=== PATIENT | male | born 1930 | race Caucasian/White ===

== ENCOUNTER 2017-07-12 16:15 | Inpatient (IN) ==
[2017-07-12 19:27] LABS: Basophils % 0.2 %; Eosinophils % 0.5 %; Hematocrit 33.3 % (37.5-50.1); Hemoglobin 11.3 g/dL (12.9-16.9); Immature Granulocytes % 1.5 % (0-4); Lymphocytes # 0.6 K/mcL (0.6-4.6); Lymphocytes % 10.2 %; Mean Corpuscular HGB Conc 33.9 g/dL (31.6-35.5); Mean Corpuscular Hemoglobin 29.3 pg (28.0-33.3); Mean Corpuscular Volume 86.3 fL (83.0-100.0); Mean Platelet Volume 10.9 fL (9.4-12.4); Monocytes # 0.5 K/mcL (0.0-1.3); Monocytes % 7.7 %; Neutrophils # 4.9 K/mcL (1.6-8.9); Red Blood Count 3.86 M/mcL (4.19-5.50); Red Cell Distribution Width 14.6 % (11.5-14.5); Segmented Neutrophils % 79.9 %
[2017-07-12 19:28] LABS: Platelet Count 93 K/mcL (140-400)
[2017-07-12 19:32] LABS: INR 1.3
[2017-07-12 19:45] LABS: Albumin 3.1 g/dL (3.5-5.7); Albumin/Globulin Ratio 1.1 (1.1-2.2); Bilirubin,Direct 0.3 mg/dL (0.0-0.2); Bilirubin,Indirect 0.5 mg/dL (0.0-1.2); Bilirubin,Total 0.8 mg/dL (0.3-1.0); Calcium 8.4 mg/dL (8.6-10.3); Globulin 2.8 g/dL (2.4-3.5); Potassium 3.9 mEq/L (3.5-5.1); Total Protein 5.9 g/dL (6.4-8.9)
--- NOTE | 2017-07-12 21:04 | Emergency Department Note ---
Disposition Clinical Impression: Renal failure (ARF), acute on chronic Qualifiers: Acute renal failure type: unspecified Chronic kidney disease stage: stage 4 ( severe) Qualified Code(s): N17.9 - Acute kidney failure, unspecified Cirrhosis of liver with ascites Qualifiers: Hepatic cirrhosis type: unspecified hepatic cirrhosis Qualified Code(s): K74.60 - Unspecified cirrhosis of liver Disposition: Admitted As Inpatient Condition: Good Referrals: Tere Castellanos GLOBAL SECURITY ARCHITECT [Primary Care Provider] - Forms: ED Satisfaction Letter, Work/School Release Time of Disposition: 21:11 General Adult HPI - General Chief complaint: ED General Medical Stated complaint: abd swelling, short of breath Time Seen by Provider: 07/12/17 18:15 Source: patient Limitations: no limitations Nursing Notes Reviewed: Yes Vital Signs Reviewed: Yes - History of Present Illness HPI Narrative: This is an 86 year-old male with history of HTN, type 2 diabtes, stage 4 kidney disease, and non-alcoholic cirrhosis. He presents with abdominal distension and early satiety, gradually worsening for at least 3 weeks, associated with a 10 pound weight gain over that time period. Recently, he has also developed exertional dyspnea. He denies any associated fever, abdominal pain (except for uncomfortable "fullness"), or urinary output changes. He was sent to the ED by his PCP Dr. Magana for therapeutic paracentesis. Pt Subjective Complaint: Abdominal Distention Onset (ago): week(s) (3) Location: abdomen Radiation: non-radiation Pain Severity: mild Pain Scale: 2 Quality: dull (fullness/distension) Consistency: Worsening Improves with: nothing Worsens with: nothing Associated symptoms: Reports: loss of appetite (decreased), shortness of breath. Denies: chest pain, fever/chills, nausea/vomiting - Related Data Home Medications Medication Instructions Recorded Confirmed Ascorbic Acid [Vitamin C] 1,000 mg PO BID 06/04/15 05/05/17 Cholecalciferol (Vitamin D3) 1,000 unit PO DAILY 06/04/15 05/05/17 [Vitamin D3] Esomeprazole Magnesium [Nexium] 40 mg PO DAILY PRN 06/04/15 05/05/17 Carvedilol [Coreg] 6.25 mg PO DAILY 05/05/17 05/05/17 Fenofibrate Nanocrystallized 145 mg PO DAILY 05/05/17 05/05/17 [Tricor] Furosemide [Lasix] 40 mg PO DAILY 05/05/17 05/05/17 Repaglinide [Prandin] 2 mg PO DAILY 07/12/17 07/12/17 Previous Rx's Medication Instructions Recorded amLODIPine [Norvasc] 5 mg PO BID #30 tablet 05/08/17 Allergies Allergy/AdvReac Type Severity Reaction Status Date / Time Sulfa (Sulfonamide AdvReac See Verified 05/05/17 16:49 Antibiotics) Comments All systems ED: reviewed and negative except as stated. Constitutional: Denies: fever Cardiovascular: Denies: chest pain, edema Respiratory: Reports: dyspnea. Denies: cough Gastrointestinal: Denies: abdominal pain, vomiting, constipation, hematemesis, melena, hematochezia Genitourinary: Denies: dysuria Musculoskeletal: Denies: back pain Past Medical History - Past Medical History Medical history: Reports: non-contributory, diabetes, hyperlipidemia, other Surgical history: Reports: no surgical history, non-contributory Psychiatric history: Reports: no psych history - Social History Smoking Status: Never smoker Smokeless Tobacco Status: No Alcohol use: Reports: none Drug use: Reports: none Physical Exam - General Limitations: no limitations General appearance: alert, in no apparent distress - Eye Eye exam: Present: normal appearance - Neck Neck exam: Present: normal inspection - Respiratory Respiratory exam: Present: normal lung sounds bilaterally. Absent: respiratory distress - Cardiovascular Cardiovascular exam: Present: regular rate, normal rhythm, normal heart sounds - Abdominal Exam Abdominal exam: Present: soft, Non-Tender, distention. Absent: guarding, rebound, rigidity, Kirk's sign, tenderness at McBurney's Point - Extremities Exam Extremities exam: Present: normal inspection. Absent: pedal edema, calf tenderness - Neurological Exam Neurological exam: Present: alert, oriented X3. Absent: motor sensory deficit - Psychiatric Psychiatric exam: Present: normal affect, normal mood - Skin Skin exam: Present: warm, dry, intact Course - Reevaluation(s) Reevaluation #1: Updated patient/family on findings and plans. They are in agreement with admission. Time: 21:13 - Consultations Consultation #1: Reviewed case with sales floor associate, Dr. Lau. He agrees with bringing patient in for acute on chronic renal failure. He recommends 0.9 NS at 75 mL/hr for a total of 1L and hold Lasix. Time: 21:00 Consultation #2: Reviewed case with Dr. Spencer, and patient accepted for admission. Time: 21:10 Vital Signs Temperature 97.8 F 07/12/17 16:18 Pulse Rate 82 07/12/17 16:18 Respiratory Rate 14 07/12/17 16:18 Blood Pressure 145/79 07/12/17 16:18 O2 Sat by Pulse Oximetry 94 07/12/17 16:18 Temperature 97.8 F 07/12/17 19:04 Pulse Rate 82 07/12/17 21:04 Respiratory Rate 14 07/12/17 19:04 Blood Pressure 136/86 07/12/17 21:04 O2 Sat by Pulse Oximetry 94 07/12/17 19:04 Oxygen Delivery Oxygen Delivery Room Air Medical Decision Making - Lab Data Result diagrams: 07/12/17 19:09 07/12/17 19:09 Lab Results 07/12/17 07/12/17 07/12/17 Range/Units 19:09 19:09 19:09 WBC 6.1 (4.3-11.1) K/mcL RBC 3.86 L (4.19-5.50) M/mcL Hgb 11.3 L (12.9-16.9) g/dL Hct 33.3 L (37.5-50.1) % MCV 86.3 (83.0-100.0) fL MCH 29.3 (28.0-33.3) pg MCHC 33.9 (31.6-35.5) g/dL RDW 14.6 H (11.5-14.5) % Plt Count 93 L (140-400) K/mcL MPV 10.9 (9.4-12.4) fL Immature Gran % 1.5 (0-4) % Seg Neutrophils % 79.9 % Lymphocytes % 10.2 % Monocytes % 7.7 % Eosinophils % 0.5 % Basophils % 0.2 % Neutrophils # 4.9 (1.6-8.9) K/mcL Lymphocytes # 0.6 (0.6-4.6) K/mcL Monocytes # 0.5 (0.0-1.3) K/mcL Eosinophils # 0.0 (0.0-0.6) K/mcL Basophils # 0.0 (0.0-0.2) K/mcL PT (9.4-12.1) Seconds INR Sodium 136 (136-145) mEq/L Potassium 3.9 (3.5-5.1) mEq/L Chloride 102 (98-107) mEq/L Carbon Dioxide 19 L (23-29) mEq/L BUN 80 H (8-23) mg/dL Creatinine 5.72 H (0.70-1.30) mg/dL Est GFR ( Amer) 11 L (> 60) Est GFR (Non-Af Amer) 9 L (> 60) BUN/Creatinine Ratio 14 (6-26) Glucose 279 H (70-105) mg/dL Calculated Osmolality 316 H (280-300) Calcium 8.4 L (8.6-10.3) mg/dL Total Bilirubin 0.8 (0.3-1.0) mg/dL Direct Bilirubin 0.3 H (0.0-0.2) mg/dL Indirect Bilirubin 0.5 (0.0-1.2) mg/dL AST 27 (13-39) Units/L ALT 13 (7-52) Units/L Alkaline Phosphatase 61 (34-104) Units/L B-Natriuretic Peptide 236 H (Less than 100) pg/mL Serum Total Protein 5.9 L (6.4-8.9) g/dL Albumin 3.1 L (3.5-5.7) g/dL Globulin 2.8 (2.4-3.5) g/dL Albumin/Globulin Ratio 1.1 (1.1-2.2) //18 Range/Units 19:09 WBC (4.3-11.1) K/mcL RBC (4.19-5.50) M/mcL Hgb (12.9-16.9) g/dL Hct (37.5-50.1) % MCV (83.0-100.0) fL MCH (28.0-33.3) pg MCHC (31.6-35.5) g/dL RDW (11.5-14.5) % Plt Count (140-400) K/mcL MPV (9.4-12.4) fL Immature Gran % (0-4) % Seg Neutrophils % % Lymphocytes % % Monocytes % % Eosinophils % % Basophils % % Neutrophils # (1.6-8.9) K/mcL Lymphocytes # (0.6-4.6) K/mcL Monocytes # (0.0-1.3) K/mcL Eosinophils # (0.0-0.6) K/mcL Basophils # (0.0-0.2) K/mcL PT 14.0 H (9.4-12.1) Seconds INR 1.3 Sodium (136-145) mEq/L Potassium (3.5-5.1) mEq/L Chloride (98-107) mEq/L Carbon Dioxide (23-29) mEq/L BUN (8-23) mg/dL Creatinine (0.70-1.30) mg/dL Est GFR ( Amer) (> 60) Est GFR (Non-Af Amer) (> 60) BUN/Creatinine Ratio (6-26) Glucose (70-105) mg/dL Calculated Osmolality (280-300) Calcium (8.6-10.3) mg/dL Total Bilirubin (0.3-1.0) mg/dL Direct Bilirubin (0.0-0.2) mg/dL Indirect Bilirubin (0.0-1.2) mg/dL AST (13-39) Units/L ALT (7-52) Units/L Alkaline Phosphatase (34-104) Units/L B-Natriuretic Peptide (Less than 100) pg/mL Serum Total Protein (6.4-8.9) g/dL Albumin (3.5-5.7) g/dL Globulin (2.4-3.5) g/dL Albumin/Globulin Ratio (1.1-2.2)
[2017-07-12] MEDS ORDERED: Naloxone 0.4 MG/ML INJ IVP PRN (21:56)
[2017-07-12] MEDS ORDERED: Dextrose Gel 15 GM/37.5 ML TUBE PO PRN ×2 (21:57)
[2017-07-12] MEDS ORDERED: *HR* Dextrose 50 % in Water (Syg) 50 ML SYRINGE IVP PRN (21:57)
[2017-07-12] MEDS ORDERED: D5% in Water 1,000 ML IVC PRN (21:57)
--- NOTE | 2017-07-12 22:03 | Internal Med History&Physical ---
Date of Encounter: 07/12/17 Time of Encounter: 22:01 Internal Medicine - H&P: HPI Chief complaint: Abdominal swelling, weight gain History of present illness: Mr. Love is a 86 year old male with history of diabetes type 2, hypertension , right kidney disease following with Dr. Stephen Negron, Wallace cirrhosis who presents with decompensated cirrhosis with ascites accumulation. Patient was told that he had WALLACE cirrhosis approximately 6-12 months ago and was supposed to follow with Dr. Castaneda as an outpatient. He is established with Dr. Medina PCP in the outpatient. He presents with one-week history of worsening abdominal swelling with distention and pressure sensation and decreased appetite due to large volume ascites accumulation. He has no prior history of paracentesis and this appeared to be his first episode of severe symptomatic ascites. Symptoms did not get better with time leading to hospital admission. Abdominal swelling was associated with 7 pound weight gain in last week. He denies any abdominal pain, fevers, chills to suggest any infective complication of cirrhosis. Past Med Surg Social Fam HX - Past Medical History Medical history: non-contributory, diabetes, hyperlipidemia, other Psychiatric history: no psych history - Past Surgical History Surgical History: no surgical history, non-contributory Additional surgical history: LEFT KNEE SURG - Social History Smoking Status: Never smoker Smokeless Tobacco Status: No Alcohol use: none Drug use: none - Family History Mother Adopted: No Family Member Ethnicity: Non- Living Status: Hx Family Cardiac Disorders: No Hx Family Respiratory Disorders: No Hx Family Cancer: No Hx Family GI Disorders: No Hx Family Endocrine Disorder: No Hx Family Neuromuscular Disorders: No Hx Family Neurologic Disorders: No Hx Family HEENT Disorders: No Hx Family Autoimmune Disorders: No Internal Medicine - H&P: Meds Ascorbic Acid [Vitamin C] 1,000 mg PO BID 06/04/15 [History] Cholecalciferol (Vitamin D3) [Vitamin D3] 1,000 unit PO DAILY 06/04/15 [History] Esomeprazole Magnesium [Nexium] 40 mg PO DAILY PRN 06/04/15 [History] Carvedilol [Coreg] 6.25 mg PO DAILY 05/05/17 [History] Fenofibrate Nanocrystallized [Tricor] 145 mg PO DAILY 05/05/17 [History] Furosemide [Lasix] 40 mg PO DAILY 05/05/17 [History] amLODIPine [Norvasc] 5 mg PO BID #30 tablet 05/08/17 [Rx] Repaglinide [Prandin] 2 mg PO DAILY 07/12/17 [History] 3 Allergy/AdvReac Type Severity Reaction Status Date / Time Sulfa (Sulfonamide AdvReac See Verified 05/05/17 16:49 Antibiotics) Comments All Systems PM: A 10-system review of systems was performed and is negative for pertinent findings except as documented above in the HPI. Review of systems: ROS 14 point review of systems reviewed as best as possible given presentation. Pertinent positive or negative as per HPI or otherwise reviewed as negative - Constitutional Vitals: Temp Pulse Resp BP Pulse Ox 97.8 F 82 14 136/86 94 07/12/17 19:04 07/12/17 21:04 07/12/17 19:04 07/12/17 21:04 07/12/17 19:04 Exam: General - AAO x 3 Psych - Appropriate affect/speech. No agitation Eyes - ROSE MARIE. Eye lids intact. No scleral icterus Heart - Sinus. RRR. S1 and S2 present. No added HS/murmurs appreciated. No elevated JVD appreciated. Lung - Adequate air entry b/l, No crackles/wheezes appreciated GI - Soft, non-tender. Standard abdomen, large foreign ascites. BS+ - No CVA/suprapubic tenderness or palpable bladder distension Skin - Ecchymosis of lower extremity noted, hemosiderosis changes noted Internal Med - H&P Results - Labs CBC & Chem 7: 07/12/17 19:09 07/12/17 19:09 - Assessment and plan (1) Decompensated hepatic cirrhosis Current Visit: Yes Status: Acute Assessment and plan: decompensated cirrhosis with ascites. No clinical evidence of SBP consult IR for large vol parecentesis in the a.m. NPO. Will need albumin IV after paracentesis tomorrow - please order after para was suppose to establish with Dr Castaneda outpatient. Family would prefer not to see Dr Delatorre. I have suggested for therapeutic paracentesis followed by early outpatient evaluation with Dr. 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 (2) DMII (diabetes mellitus, type 2) Current Visit: Yes Status: Acute Assessment and plan: on prandin add iss while inpatient for now Qualifiers: Diabetes mellitus senior care insulin use: without senior care use Diabetes mellitus complication status: without complication Qualified Code(s): E11.9 - Type 2 diabetes mellitus without complications (3) CKD (chronic kidney disease) Current Visit: No Status: Chronic Assessment and plan: send urine Na doubt hepatorenal syndrome follows with Dr Lackey outpatient Hold diuretics Qualifiers: Chronic kidney disease stage: stage 4 (severe) Qualified Code(s): N18.4 - Chronic kidney disease, stage 4 (severe) (4) HTN (hypertension) Current Visit: No Status: Chronic Assessment and plan: on [facility] Qualifiers: Hypertension type: unspecified Qualified Code(s): I10 - Essential (primary ) hypertension - Time Spent With Patient Total time spent is greater than 50% in coordination of care (as documented) at patient's floor/unit and/or counseling patient:
[2017-07-13] MEDS: Insulin LISPRO 300 UNITS/3 ML VIAL SQ SCH ×4 (09:28→21:18)
[2017-07-13] MEDS: Ascorbic Acid 500 MG TABLET PO SCH ×2 (09:31→20:09)
[2017-07-13] MEDS: Fenofibrate 54 MG TABLET PO SCH (09:31)
[2017-07-13] MEDS: amLODIPine 5 MG TABLET PO SCH ×2 (09:32→20:09)
[2017-07-13] MEDS: *HR* Repaglinide 1 MG TABLET PO SCH (09:32)
--- NOTE | 2017-07-13 11:05 | IR Procedure Note ---
Date of procedure: 07/13/17 Consent Obtained: Written consent Timeout: Correct patient and procedure verified, Correct site verified, Time out performed, Skin prep completed Local anesthetic: Lidocaine 1% Indications: TRIVEDI cirrhosis Procedure Performed: Paracentesis Was there an compliance assistant present: No Site/Technique: RLQ access Results/Findings: Straw colored ascites. 8.5L removed. Estimated blood loss (cc): 1 Complications: None; Tolerated procedure well Post Procedure Treatment Plan: Monitoring in pts room Specimen: sample collected in case needed.
[2017-07-13 12:47] LABS: Appearance of Body Fluid Clear (Clear); Volume of Body Fluid 60 mL
--- NOTE | 2017-07-13 15:01 | Internal Med Progress Note ---
Date of Encounter: 07/13/17 Time of Encounter: 15:00 - Assessment and plan (1) Decompensated hepatic cirrhosis Current Visit: Yes Status: Acute Assessment and plan: Decompensated hepatic cirrhosis with increasing ascites secondary to Wallace cirrhosis Patient and IR today for large volume paracentesis 8 Liters of fluid drained and sent for cell count and cytology Infuse albumin following paracentesis Closely monitoring the dynamic status, hemodynamically stable Consider consulting Dr. Castaneda for Wallace cirrhosis. Follows with Dr. Castaneda as outpatient (2) HTN (hypertension) Current Visit: No Status: Chronic Assessment and plan: History of HTN, blood pressures remain stable on norvasc Qualifiers: Hypertension type: unspecified Qualified Code(s): I10 - Essential (primary ) hypertension (3) CKD (chronic kidney disease) Current Visit: No Status: Chronic Qualifiers: Chronic kidney disease stage: stage 4 (severe) Qualified Code(s): N18.4 - Chronic kidney disease, stage 4 (severe) (4) DMII (diabetes mellitus, type 2) Current Visit: Yes Status: Acute Assessment and plan: History of type 2 diabetes Continue sliding scale insulin coverage Blood glucose stable at this time, consider increasing coverage should patient become hyperglycemic Qualifiers: Diabetes mellitus [facility] insulin use: without long term care pharmacist use Diabetes mellitus complication status: without complication Qualified Code(s): E11.9 - Type 2 diabetes mellitus without complications (5) Renal failure (ARF), acute on chronic Current Visit: Yes Status: Acute Assessment and plan: Acute on chronic renal failure in the setting of CKD4 Follows with [facility] Worsening renal function. Today's labs with serum creatinine of 5.72, BUN 80 and GFR of 9. Potassium 3.9 Hold diuretics, continue renal protective measures Do not believe this is hepatorenal syndrome Consult to nephrology for further recommendations and evaluation Qualifiers: Acute renal failure type: unspecified Chronic kidney disease stage: stage 4 (severe) Qualified Code(s): N17.9 - Acute kidney failure, unspecified; N18.4 - Chronic kidney disease, stage 4 (severe) - Time Spent With Patient Total time spent is greater than 50% in coordination of care (as documented) at patient's floor/unit and/or counseling patient: 25 - 35 minutes - Constitutional Vitals: Temp Pulse Resp BP Pulse Ox 98.0 F 83 18 115/73 98 07/13/17 11:40 07/13/17 11:40 07/13/17 11:40 07/13/17 11:40 07/13/17 11:40 Internal Medicine: Result - Labs CBC & Chem 7: 07/12/17 19:09 07/12/17 19:09 - ABG Interpretation ABG results: PT/INR, D-dimer PT 14.0 Seconds (9.4-12.1) H 07/12/17 19:09 Consult Discharge Plan - Plan Referrals: Tere Castellnaos CNP [Primary Care Provider] - 07/20/17 10:00 am
--- NOTE | 2017-07-13 15:14 | Internal Med Progress Note ---
Date of Encounter: 07/13/17 Time of Encounter: 15:13 - Assessment and plan (1) Decompensated hepatic cirrhosis Current Visit: Yes Status: Acute Assessment and plan: Decompensated hepatic cirrhosis with increasing ascites secondary to Wallace cirrhosis Patient and IR today for large volume paracentesis 8 Liters of fluid drained and sent for cell count and cytology Infuse albumin following paracentesis Closely monitoring the dynamic status, hemodynamically stable Consider consulting Dr. Castaneda for Wallace cirrhosis. Follows with Dr. Castaneda as outpatient (2) HTN (hypertension) Current Visit: No Status: Chronic Assessment and plan: History of HTN, blood pressures remain stable on norvasc Qualifiers: Hypertension type: unspecified Qualified Code(s): I10 - Essential (primary ) hypertension (3) CKD (chronic kidney disease) Current Visit: No Status: Chronic Assessment and plan: send urine Na doubt hepatorenal syndrome follows with Dr Lackey outpatient Hold diuretics Qualifiers: Chronic kidney disease stage: stage 4 (severe) Qualified Code(s): N18.4 - Chronic kidney disease, stage 4 (severe) (4) DMII (diabetes mellitus, type 2) Current Visit: Yes Status: Acute Assessment and plan: History of type 2 diabetes Continue sliding scale insulin coverage Blood glucose stable at this time, consider increasing coverage should patient become hyperglycemic Qualifiers: Diabetes mellitus intermediate insulin use: without intermediate use Diabetes mellitus complication status: without complication Qualified Code(s): E11.9 - Type 2 diabetes mellitus without complications (5) Renal failure (ARF), acute on chronic Current Visit: Yes Status: Acute Assessment and plan: Acute on chronic renal failure in the setting of CKD4 Follows with [facility] Worsening renal function. Today's labs with serum creatinine of 5.72, BUN 80 and GFR of 9. Potassium 3.9 Hold diuretics, continue renal protective measures Do not believe this is hepatorenal syndrome Consult to nephrology for further recommendations and evaluation Qualifiers: Acute renal failure type: unspecified Chronic kidney disease stage: stage 4 (severe) Qualified Code(s): N17.9 - Acute kidney failure, unspecified; N18.4 - Chronic kidney disease, stage 4 (severe) - Time Spent With Patient Total time spent is greater than 50% in coordination of care (as documented) at patient's floor/unit and/or counseling patient: 25 - 35 minutes - Subjective Interval history: no acute changes overnight, reporting improved comfort following pracentesis - Constitutional Vitals: Temp Pulse Resp BP Pulse Ox 98.0 F 83 18 115/73 98 07/13/17 11:40 07/13/17 11:40 07/13/17 11:40 07/13/17 11:40 07/13/17 11:40 General appearance: Present: A&O X 3 - Head Head exam: Present: atraumatic, normocephalic - Eye Eye exam: Present: PERRL, conjuntiva pink, sclera anicteric Pupils: Present: PERRL - Neck Neck exam general surgery: Present: supple, trachea midline. Absent: lymphadenopathy - Respiratory Respiratory exam: Present: CTAB. Absent: accessory muscle use, rales, rhonchi, wheezes - Cardiovascular Cardiovascular exam: Present: RRR, +S1, +S2. Absent: diastolic murmur, gallop, rubs, systolic murmur - GI/Abdominal GI/Abdominal exam: Present: normal bowel sounds, soft, no peritoneal signs. Absent: distended, tenderness - Extremities Exam Extremities exam: Present: warm, radial pulses palpable and symmetrical. Absent : calf tenderness, cyanotic, pedal edema - Neurological Exam Neurological exam: Present: CN II-XII intact, oriented X3, no focal deficits. Absent: pronater drift, facial droop, speech deficit - Skin Skin exam: Present: dry, intact Internal Medicine: Result - Labs CBC & Chem 7: 07/12/17 19:09 07/12/17 19:09 - ABG Interpretation ABG results: PT/INR, D-dimer PT 14.0 Seconds (9.4-12.1) H 07/12/17 19:09 - Impressions Impressions Paracentesis Ultrasound 07/13/17 00:00 IMPRESSION: Successful ultrasound guided paracentesis. D/ / Vijay Baumann MD / Vijay Baumann MD Interpreting Provider: Vijay Baumann MD Consult Discharge Plan - Plan Referrals: Tere Castellanos, PACKING MACHINE FEEDER [Primary Care Provider] - 07/20/17 10:00 am
[2017-07-13] MEDS ORDERED: Albumin 25% 25gram/100mL 25 GM/100 ML IV.SOLN IVPB SCH (16:00)
--- NOTE | 2017-07-13 16:08 | Nephrology Consult Note ---
Date of Encounter: 07/13/17 Time of Encounter: 16:00 Assessment and Plan (1) Renal failure (ARF), acute on chronic Current Visit: Yes Status: Acute Is well known to Dr. Serra. UA and Urine NA ordered to rule out other processes. Srict I/O Avoid nephrotoxins and renal dose all medications. Scr 5.72 and GFR 9. Qualifiers: Acute renal failure type: unspecified Chronic kidney disease stage: stage 4 (severe) Qualified Code(s): N17.9 - Acute kidney failure, unspecified; N18.4 - Chronic kidney disease, stage 4 (severe) (2) Cirrhosis of liver with ascites Current Visit: Yes Status: Acute Per primary. Qualifiers: Hepatic cirrhosis type: unspecified hepatic cirrhosis Qualified Code(s): K74.60 - Unspecified cirrhosis of liver; R18.8 - Other ascites (3) HTN (hypertension) Current Visit: No Status: Chronic BP stable 115/73. Qualifiers: Hypertension type: unspecified Qualified Code(s): I10 - Essential (primary ) hypertension History of Present Illness - Reason for Consult Consult date: 07/13/17 Chronic Kidney Disease - Chief Complaint abdominal swelling, shortness of breath - History of Present Illness Mr. Love is an 86 year old Male that is followed by Dr. Serra in the office for CKD IV. PMH: DM, HTN, WALLACE, and CKD IV. Wallace is a new diagnosis in the last year, he was referred to Dr. Castaneda outpatient. Presented to ED with abdominal swelling and shortness of breath. Paracentesis today drained 8 Liters and was sent for cytology. Denies fever, chills, emesis. Admits to diarrhea, fatigue, and large fluid gain in the abdomen. Denies pain or shortness of breath. Unsure if this is progression of CKD or MORRO from worsening liver function. Will order UA and urine NA to rule out other processes. Past Med Surg Social Fam HX - Past Medical History Medical history: non-contributory, cirrhosis, diabetes, GERD, hyperlipidemia, hypertension, renal disease, other Psychiatric history: no psych history - Past Surgical History Surgical History: non-contributory Additional surgical history: LEFT KNEE SURG - Social History Smoking Status: Never smoker Smokeless Tobacco Status: No Alcohol use: none Drug use: none - Family History Mother Adopted: No Family Member Ethnicity: Non- Living Status: Hx Family Cardiac Disorders: No Hx Family Respiratory Disorders: No Hx Family Cancer: No Hx Family GI Disorders: No Hx Family Endocrine Disorder: No Hx Family Neuromuscular Disorders: No Hx Family Neurologic Disorders: No Hx Family HEENT Disorders: No Hx Family Autoimmune Disorders: No Medications and Allergies Ascorbic Acid [Vitamin C] 1,000 mg PO BID 06/04/15 [History] Cholecalciferol (Vitamin D3) [Vitamin D3] 1,000 unit PO DAILY 06/04/15 [History] Esomeprazole Magnesium [Nexium] 40 mg PO DAILY PRN 06/04/15 [History] Carvedilol [Coreg] 6.25 mg PO DAILY 05/05/17 [History] Fenofibrate Nanocrystallized [Tricor] 145 mg PO DAILY 05/05/17 [History] Furosemide [Lasix] 40 mg PO DAILY 05/05/17 [History] amLODIPine [Norvasc] 5 mg PO BID #30 tablet 05/08/17 [Rx] Repaglinide [Prandin] 2 mg PO DAILY 07/12/17 [History] 3 Allergy/AdvReac Type Severity Reaction Status Date / Time Sulfa (Sulfonamide AdvReac See Verified 05/05/17 16:49 Antibiotics) Comments Review of Systems ROS unobtainable: other (as per HPI) Exam - Vital Signs Vital signs: Initial Vital Signs Temp Pulse Resp BP Pulse Ox 97.8 F 82 14 145/79 94 07/12/17 16:18 07/12/17 16:18 07/12/17 16:18 07/12/17 16:18 07/12/17 16:18 Vital Signs - Last 8 Hours Temp Pulse Resp BP Pulse Ox 07/13/17 11:40 98.0 F 83 18 115/73 98 Intake and Output 07/13/17 07/13/17 07/13/17 07:59 15:59 23:59 Output Total 25 / 25 Balance -25 / -25 Output: Urine 25 / 25 Other: Stool Size Small Stool Consistency soft Stool Color Brown # Bowel Movements 1 Blood Glucose* 163 153 - General Appearance General appearance: well-developed, well-nourished EENT: ATNC, hearing intact, vision intact Neck: supple Cardiology: no edema, regular rate, regular rhythm, normal S1, normal S2 Gastrointestinal: normoactive bowel sounds, no tenderness, no guarding Integumentary: no rash Neurologic: alert and oriented x3 Psychiatric: mood/affect appropriate, cooperative Results - Lab Results 07/12/17 19:09 07/12/17 19:09 Most recent lab results Calcium 8.4 mg/dL (8.6-10.3) L 07/12/17 19:09 Consult Discharge Plan - Plan Referrals: Tere Castellanos CNP [Primary Care Provider] - 07/20/17 10:00 am
[2017-07-13 16:51] LABS: Bilirubin,Urine Negative (Negative); Blood,Urine Negative (Negative); Clarity,Urine Clear (Clear); Color,Urine Yellow (Yellow); Glucose,Urine (UA) Normal (Normal); Ketones,Urine Negative (Negative); Leukocyte Esterase,Urine Small (Negative); Nitrite,Urine Negative (Negative); PH,Urine 5.5 pH Units (5.0-8.0); Protein,Urine 30 mg/dL (Neg-Trace); Specific Gravity,Urine 1.017 (1.010-1.025); Urobilinogen,Urine Normal (Normal)
[2017-07-13 16:53] LABS: Bacteria,Urine None Seen per hpf (None-Few); Hyaline Casts,Urine None Seen per lpf (None-Few); Squamous Epithelial Cell,Urine Moderate per lpf (None-Few)
[2017-07-14 06:20] LABS: Basophils % 0.3 %; Lymphocytes % 13.1 %
[2017-07-14 06:22] LABS: Eosinophils % 0.5 %; Hematocrit 24.4 % (37.5-50.1); Hemoglobin 8.4 g/dL (12.9-16.9); Immature Platelets 1.5 % (1.1-6.1); Lymphocytes # 0.5 K/mcL (0.6-4.6); Mean Corpuscular HGB Conc 34.4 g/dL (31.6-35.5); Mean Corpuscular Hemoglobin 29.4 pg (28.0-33.3); Mean Corpuscular Volume 85.3 fL (83.0-100.0); Mean Platelet Volume 10.8 fL (9.4-12.4); Monocytes # 0.4 K/mcL (0.0-1.3); Monocytes % 9.3 %; Red Blood Count 2.86 M/mcL (4.19-5.50); Red Cell Distribution Width 14.7 % (11.5-14.5); Segmented Neutrophils % 75.8 %
[2017-07-14 06:26] LABS: Platelet Count 57 K/mcL (140-400)
[2017-07-14 06:40] LABS: Calcium 7.9 mg/dL (8.6-10.3); Potassium 3.6 mEq/L (3.5-5.1)
[2017-07-14] MEDS ORDERED: Albumin 25% 25gram/100mL 25 GM/100 ML IV.SOLN IVPB SCH ×2 (08:00)
[2017-07-14] MEDS: Ascorbic Acid 500 MG TABLET PO SCH ×2 (09:19→20:38)
[2017-07-14] MEDS: *HR* Repaglinide 1 MG TABLET PO SCH (09:19)
[2017-07-14] MEDS: Fenofibrate 54 MG TABLET PO SCH (09:19)
[2017-07-14] MEDS: Insulin LISPRO 300 UNITS/3 ML VIAL SQ SCH ×4 (09:19→20:37)
[2017-07-14] MEDS: amLODIPine 5 MG TABLET PO SCH ×2 (09:19→20:38)
[2017-07-14] MEDS ORDERED: 0.9 % Sodium Chloride 1,000 ML IVC SCH (11:00)
--- NOTE | 2017-07-14 17:08 | Nephrology Progress Note ---
Date of Encounter: 07/15/17 Time of Encounter: 14:30 - Assessment and Plan (1) MORRO (acute kidney injury) Current Visit: Yes Status: Acute SCr worse at 5.93, GFR 9 after paracentesis yesterday, high volume despite albumin infusion and also notable hgb in hgb from 11.3 to 8.4 Discussed at great length worsening renal fxn and the need for ANIMAL RESEARCHER if no improvement. pt wants to wait for 24hrs of IVF before decision, which is reasonable Continue to avoid nephrotoxins if possible Will check urine studies, cpk and uric acid levels if not already done (2) CKD (chronic kidney disease) stage 4, GFR 15-29 ml/min Current Visit: Yes Status: Acute GFR typically 15-20 (3) Cirrhosis of liver with ascites Current Visit: Yes Status: Acute s/p paracentesis, will monitor Qualifiers: Hepatic cirrhosis type: unspecified hepatic cirrhosis Qualified Code(s): K74.60 - Unspecified cirrhosis of liver; R18.8 - Other ascites (4) Anemia Current Visit: Yes Status: Acute Hgb dropped from 11.3 to 8.4, etiology unclear but concerning for bleeding, will monitor and primary team to workup Qualifiers: Anemia type: unspecified type Qualified Code(s): D64.9 - Anemia, unspecified Subjective Interval history: Interim events noted, pt seen and examined , well knonw to me from years of monitoring for stage 4 CKD. Pt reports feeling better today after high volume paracentesis yesterday. He admits to poor po intake overall prior to admission Objective - Vital Signs Vital signs: Vital Signs Temp Pulse Resp BP Pulse Ox 07/14/17 15:19 98.0 F 71 18 109/64 96 07/14/17 11:02 97.8 F 83 18 100/63 92 07/14/17 07:01 98.0 F 68 18 132/71 98 07/14/17 02:30 97.7 F 71 16 110/63 97 07/13/17 23:01 98.2 F 76 16 107/68 97 07/13/17 18:53 97.8 F 78 16 116/61 96 Intake and Output 07/14/17 07/14/17 07/14/17 07:59 15:59 23:59 Intake Total 200 / 200 300 / 300 Balance 200 / 200 300 / 300 Intake: IV Fluids 200 / 200 Flexbumin 25 gm In 100 ml @ 60 200 / 200 mls/hr IVPB Q8HR [facility] Rx#: [id number] Oral 300 / 300 Other: Meal Lunch Percent of Meal Consumed 50% Stool Size Small Small Stool Consistency loose loose # Voids 1 1 1 # Bowel Movements 1 1 Weight 64.2 kg Blood Glucose* 84 100 Patient Weight 07/14/17 23:59 Weight 64.2 kg - General Appearance General appearance: Present: chronically ill, frail EENT: Present: ATNC, mucous membranes dry Neck: Present: no JVD, supple Respiratory: Present: clear (ant bilat) Cardiology: Present: no edema, normal S1, normal S2 Gastrointestinal: Present: no tenderness, no guarding Integumentary: Present: warm and dry Neurologic: Present: no focal deficit Musculoskeletal: Present: no deformities Psychiatric: Present: mood/affect appropriate, cooperative - Lab 07/15/17 06:21 07/15/17 00:30 Most recent lab results Calcium 7.9 mg/dL (8.6-10.3) L 07/14/17 05:52 Consult Discharge Plan - Plan Referrals: Tere Castellanos MECHANICAL INSPECTOR [Primary Care Provider] - 07/20/17 10:00 am
[2017-07-14 17:41] LABS: Uric Acid 9.9 mg/dL (2.3-7.6)
--- NOTE | 2017-07-14 18:18 | Internal Med Progress Note ---
Date of Encounter: 07/14/17 Time of Encounter: 18:14 - Assessment and plan (1) Decompensated hepatic cirrhosis Current Visit: Yes Status: Acute Assessment and plan: Decompensated hepatic cirrhosis with increasing ascites secondary to Wallace cirrhosis Large volume paracentesis yesterday with a liters of fluid removed Albumin infused following paracentesis Abdomen has remained soft and nontender Closely monitoring the dynamic status, hemodynamically stable Consider consulting Dr. Castaneda for Wallace cirrhosis. Follows with Dr. Castaneda as outpatient (2) HTN (hypertension) Current Visit: No Status: Chronic Assessment and plan: History of HTN, blood pressures remain stable on norvasc, continue. Should he develop hypotension we will hold Norvasc Qualifiers: Hypertension type: unspecified Qualified Code(s): I10 - Essential (primary ) hypertension (3) CKD (chronic kidney disease) Current Visit: No Status: Chronic Assessment and plan: CKD stage IV, GFR typically 15-[address] Negron-nephrology following Acute kidney injury on chronic renal disease Creatinine worse today at 5.93 GFR 9 after paracentesis yesterday and high volume despite albumin infusion Patient on 24-hour IVF, continue to monitor renal function and avoid nephrotoxins if possible Urine studies pending, CPK pending, uric acid level pending Qualifiers: Chronic kidney disease stage: stage 4 (severe) Qualified Code(s): N18.4 - Chronic kidney disease, stage 4 (severe) (4) DMII (diabetes mellitus, type 2) Current Visit: Yes Status: Acute Assessment and plan: History of type 2 diabetes Continue sliding scale insulin coverage Blood glucose remains stable at this time, consider increasing coverage should patient become hyperglycemic Qualifiers: Diabetes mellitus usp insulin use: without usp use Diabetes mellitus complication status: without complication Qualified Code(s): E11.9 - Type 2 diabetes mellitus without complications (5) Renal failure (ARF), acute on chronic Current Visit: Yes Status: Acute Assessment and plan: see above Qualifiers: Acute renal failure type: unspecified Chronic kidney disease stage: stage 4 (severe) Qualified Code(s): N17.9 - Acute kidney failure, unspecified; N18.4 - Chronic kidney disease, stage 4 (severe) (6) Anemia Current Visit: Yes Status: Acute Assessment and plan: Anemia of unclear etiology Decrease in hemoglobin from 11.3-8.4 today No obvious signs of bleeding, patient remains hemodynamically stable Patient had paracentesis yesterday, abdomen remained soft, nondistended and nontender. Not appear to be acute Monitor closely Recheck H&H now Transfuse PRBCs if needed Type and screen patient now Qualifiers: Anemia type: unspecified type Qualified Code(s): D64.9 - Anemia, unspecified (7) Cirrhosis of liver with ascites Current Visit: Yes Status: Acute Assessment and plan: See above Qualifiers: Hepatic cirrhosis type: unspecified hepatic cirrhosis Qualified Code(s): K74.60 - Unspecified cirrhosis of liver; R18.8 - Other ascites - Time Spent With Patient Total time spent is greater than 50% in coordination of care (as documented) at patient's floor/unit and/or counseling patient: 25 - 35 minutes - Subjective Interval history: no acute changes overnight, continuing to report improved comfort following pracentesis - Constitutional Vitals: Temp Pulse Resp BP Pulse Ox 98.0 F 71 18 109/64 96 07/14/17 15:19 07/14/17 15:19 07/14/17 15:19 07/14/17 15:19 07/14/17 15:19 General appearance: Present: A&O X 3 - Head Head exam: Present: atraumatic, normocephalic - Eye Eye exam: Present: PERRL, conjuntiva pink, sclera anicteric Pupils: Present: PERRL - Neck Neck exam general surgery: Present: supple, trachea midline. Absent: lymphadenopathy - Respiratory Respiratory exam: Present: CTAB. Absent: accessory muscle use, rales, rhonchi, wheezes - Cardiovascular Cardiovascular exam: Present: RRR, +S1, +S2. Absent: diastolic murmur, gallop, rubs, systolic murmur - GI/Abdominal GI/Abdominal exam: Present: normal bowel sounds, soft, no peritoneal signs. Absent: distended, tenderness - Extremities Exam Extremities exam: Present: warm, radial pulses palpable and symmetrical. Absent : calf tenderness, cyanotic, pedal edema - Neurological Exam Neurological exam: Present: CN II-XII intact, oriented X3, no focal deficits. Absent: pronater drift, facial droop, speech deficit - Skin Skin exam: Present: dry, intact Internal Medicine: Result - Labs CBC & Chem 7: 07/14/17 05:52 07/14/17 05:52 Labs: Short CBC 07/14/17 Range/Units 05:52 WBC 4.0 L (4.3-11.1) K/mcL Hgb 8.4 L D (12.9-16.9) g/dL Hct 24.4 L (37.5-50.1) % Plt Count 57 L (140-400) K/mcL Neutrophils # 3.0 (1.6-8.9) K/mcL BMP 07/14/17 05:52 Sodium 137 Potassium 3.6 Chloride 107 Carbon Dioxide 19 L BUN 88 H Creatinine 5.93 H Glucose 73 Calcium 7.9 L - ABG Interpretation ABG results: PT/INR, D-dimer PT 14.0 Seconds (9.4-12.1) H 07/12/17 19:09 Consult Discharge Plan - Plan Referrals: Tere Castellanos CNP [Primary Care Provider] - 07/20/17 10:00 am
[2017-07-14 19:24] LABS: Hematocrit 28.2 % (37.5-50.1); Hemoglobin 9.5 g/dL (12.9-16.9)
[2017-07-15 01:22] LABS: Hematocrit 26.4 % (37.5-50.1); Hemoglobin 8.9 g/dL (12.9-16.9); Mean Corpuscular HGB Conc 33.7 g/dL (31.6-35.5); Mean Corpuscular Hemoglobin 29.3 pg (28.0-33.3); Mean Corpuscular Volume 86.8 fL (83.0-100.0); Red Blood Count 3.04 M/mcL (4.19-5.50)
[2017-07-15 01:24] LABS: Basophils % 0.5 %; Eosinophils % 0.8 %; Immature Granulocytes % 0.8 % (0-4); Immature Platelets 1.7 % (1.1-6.1); Lymphocytes % 11.4 %; Mean Platelet Volume 11.1 fL (9.4-12.4); Monocytes # 0.4 K/mcL (0.0-1.3); Monocytes % 9.1 %; Nucleated Red Blood Cells 0.5 /100 WBC (0); Red Cell Distribution Width 14.9 % (11.5-14.5); Segmented Neutrophils % 77.4 %
[2017-07-15 01:25] LABS: Lymphocytes # 0.4 K/mcL (0.6-4.6)
[2017-07-15 01:26] LABS: Platelet Count 54 K/mcL (140-400)
[2017-07-15 01:41] LABS: Calcium 7.6 mg/dL (8.6-10.3); Potassium 3.7 mEq/L (3.5-5.1)
[2017-07-15 06:52] LABS: Hematocrit 27.8 % (37.5-50.1); Hemoglobin 9.5 g/dL (12.9-16.9)
[2017-07-15] MEDS: Insulin LISPRO 300 UNITS/3 ML VIAL SQ SCH ×4 (07:53→20:39)
[2017-07-15] MEDS: Ascorbic Acid 500 MG TABLET PO SCH ×2 (07:59→20:41)
[2017-07-15] MEDS: Fenofibrate 54 MG TABLET PO SCH (07:59)
[2017-07-15] MEDS: amLODIPine 5 MG TABLET PO SCH ×2 (07:59→20:40)
[2017-07-15] MEDS: *HR* Repaglinide 1 MG TABLET PO SCH (07:59)
--- NOTE | 2017-07-15 11:40 | Nephrology Progress Note ---
Date of Encounter: 07/15/17 Time of Encounter: 12:00 - Assessment and Plan (1) MORRO (acute kidney injury) Status: Acute SCr at a plateau 5.95, GFR 9, will monitor Discussed at great length worsening renal fxn and the need for COACH MECHANIC if no improvement. Continue to avoid nephrotoxins if possible Await urine studies. cpk WNL and uric acid level elevated consistent with decreased renal clearance (2) CKD (chronic kidney disease) stage 4, GFR 15-29 ml/min Status: Acute GFR typically 15-20 (3) Cirrhosis of liver with ascites Status: Acute s/p paracentesis, will monitor Qualifiers: Hepatic cirrhosis type: unspecified hepatic cirrhosis Qualified Code(s): K74.60 - Unspecified cirrhosis of liver; R18.8 - Other ascites (4) Anemia Status: Acute Hgb improved slightly at 9.5 from 8.7, will monitor Qualifiers: Anemia type: unspecified type Qualified Code(s): D64.9 - Anemia, unspecified Subjective Interval history: Interim events noted, pt seen and examined with no new complaints. Objective - Vital Signs Vital signs: Vital Signs Temp Pulse Resp BP Pulse Ox 07/15/17 11:16 97.5 F L 74 14 113/65 96 07/15/17 06:57 97.5 F L 75 14 130/78 95 07/15/17 03:03 97.6 F 65 16 96 07/14/17 22:59 97.7 F 69 16 126/81 98 07/14/17 19:14 97.7 F 73 15 124/69 90 07/14/17 15:19 98.0 F 71 18 109/64 96 Intake and Output 07/14/17 07/15/17 07/15/17 23:59 07:59 15:59 Intake Total 1000 / 1000 240 / 240 Balance 1000 / 1000 240 / 240 Intake: IV Fluids 1000 / 1000 0.9 % Sodium Chloride 1,000 ML 1000 / 1000 @ 75 mls/hr IVC .[id number] [facility] Rx #:[id number] Oral 240 / 240 Other: Meal Breakfast Percent of Meal Consumed 95% Stool Size Small Stool Consistency loose # Voids 1 1 # Bowel Movements 1 Weight 64.2 kg Blood Glucose* 122 98 107 Patient Weight 07/15/17 23:59 Weight 64.2 kg - General Appearance General appearance: Present: chronically ill, frail EENT: Present: ATNC, mucous membranes moist Neck: Present: no JVD, supple Respiratory: Present: clear Cardiology: Present: edema (trace LE edema bilat), normal S1, normal S2 Gastrointestinal: Present: no tenderness, no guarding Integumentary: Present: warm and dry, chronic venous stasis Neurologic: Present: no focal deficit Musculoskeletal: Present: no deformities Psychiatric: Present: mood/affect appropriate, cooperative - Lab 07/22/17 05:40 07/22/17 05:40 Most recent lab results Calcium 7.6 mg/dL (8.6-10.3) L 07/15/17 00:30 Consult Discharge Plan - Plan Referrals: Tere Castellanos CNP [Primary Care Provider] - 07/20/17 10:00 am
--- NOTE | 2017-07-15 12:35 | Internal Med Progress Note ---
Date of Encounter: 07/15/17 Time of Encounter: 12:35 - Assessment and plan (1) Decompensated hepatic cirrhosis Current Visit: Yes Status: Acute Assessment and plan: Decompensated hepatic cirrhosis with increasing ascites secondary to Wallace cirrhosis Large volume paracentesis completed removing 8 L of fluid Abdomen has remained soft and nontender and nondistended Closely monitoring the dynamic status, hemodynamically stable To follow with Dr. Castaneda as outpatient (2) Cirrhosis of liver with ascites Current Visit: Yes Status: Acute Assessment and plan: See above Qualifiers: Hepatic cirrhosis type: unspecified hepatic cirrhosis Qualified Code(s): K74.60 - Unspecified cirrhosis of liver; R18.8 - Other ascites (3) HTN (hypertension) Current Visit: No Status: Chronic Assessment and plan: History of HTN, remains hemodynamically stable, continue anti-HTN medications Qualifiers: Hypertension type: unspecified Qualified Code(s): I10 - Essential (primary ) hypertension (4) CKD (chronic kidney disease) Current Visit: No Status: Chronic Assessment and plan: CKD stage IV, GFR typically 15-[address] Negron-nephrology following-D/W patient regarding need for SENIOR HEALTH PHYSICS TECHNICIAN if no improvement in renal function Acute kidney injury on chronic renal disease Creatinine has now plateaued at 5.9, GFR 9 IVF has completed, continue to monitor renal function and avoid nephrotoxins if possible Urine studies pending, CPK WNL uric acid level elevated indicative of decreased renal clearance Qualifiers: Chronic kidney disease stage: stage 4 (severe) Qualified Code(s): N18.4 - Chronic kidney disease, stage 4 (severe) (5) DMII (diabetes mellitus, type 2) Current Visit: Yes Status: Acute Assessment and plan: History of type 2 diabetes Continue sliding scale insulin coverage Blood glucose remains stable throughout the stay Qualifiers: Diabetes mellitus regional intermodal truck driver insulin use: without regional intermodal truck driver use Diabetes mellitus complication status: without complication Qualified Code(s): E11.9 - Type 2 diabetes mellitus without complications (6) Renal failure (ARF), acute on chronic Current Visit: Yes Status: Acute Assessment and plan: Please see above Qualifiers: Acute renal failure type: unspecified Chronic kidney disease stage: stage 4 (severe) Qualified Code(s): N17.9 - Acute kidney failure, unspecified; N18.4 - Chronic kidney disease, stage 4 (severe) (7) Anemia Current Visit: Yes Status: Acute Assessment and plan: Anemia of unclear etiology Decrease in hemoglobin following a paracentesis No obvious signs of bleeding, patient remains hemodynamically stable Anemia has slightly improved today with a hemoglobin of 9.5 Monitor closely Qualifiers: Anemia type: unspecified type Qualified Code(s): D64.9 - Anemia, unspecified - Time Spent With Patient Total time spent is greater than 50% in coordination of care (as documented) at patient's floor/unit and/or counseling patient: 25 - 35 minutes - Subjective Interval history: no acute changes overnight, no, medications following paracentesis. Denies any abdominal pain/swelling. - Constitutional Vitals: Temp Pulse Resp BP Pulse Ox 97.5 F L 74 14 113/65 96 07/15/17 11:16 07/15/17 11:16 07/15/17 11:16 07/15/17 11:16 07/15/17 11:16 General appearance: Present: A&O X 3 - Head Head exam: Present: atraumatic, normocephalic - Eye Eye exam: Present: PERRL, conjuntiva pink, sclera anicteric Pupils: Present: PERRL - Neck Neck exam general surgery: Present: supple, trachea midline. Absent: lymphadenopathy - Respiratory Respiratory exam: Present: CTAB. Absent: accessory muscle use, rales, rhonchi, wheezes - Cardiovascular Cardiovascular exam: Present: RRR, +S1, +S2. Absent: diastolic murmur, gallop, rubs, systolic murmur - GI/Abdominal GI/Abdominal exam: Present: normal bowel sounds, soft, no peritoneal signs. Absent: distended, tenderness - Extremities Exam Extremities exam: Present: warm, radial pulses palpable and symmetrical. Absent : calf tenderness, cyanotic, pedal edema - Neurological Exam Neurological exam: Present: CN II-XII intact, oriented X3, no focal deficits. Absent: pronater drift, facial droop, speech deficit - Skin Skin exam: Present: dry, intact Internal Medicine: Result - Labs CBC & Chem 7: 07/15/17 06:21 07/15/17 00:30 Labs: Short CBC 07/14/17 07/15/17 07/15/17 Range/Units 18:37 00:30 06:21 WBC 3.9 L (4.3-11.1) K/mcL Hgb 9.5 L 8.9 L 9.5 L (12.9-16.9) g/dL Hct 28.2 L 26.4 L 27.8 L (37.5-50.1) % Plt Count 54 L (140-400) K/mcL Neutrophils # 3.0 (1.6-8.9) K/mcL BMP 07/14/17 07/15/17 05:52 00:30 Sodium 137 134 L Potassium 3.6 3.7 Chloride 107 104 Carbon Dioxide 19 L 19 L BUN 88 H 87 H Creatinine 5.93 H 5.95 H Glucose 73 69 L Calcium 7.9 L 7.6 L - ABG Interpretation ABG results: PT/INR, D-dimer PT 14.0 Seconds (9.4-12.1) H 07/12/17 19:09 Consult Discharge Plan - Plan Referrals: Tere Castellanos CNP [Primary Care Provider] - 07/20/17 10:00 am
[2017-07-16 06:02] LABS: Hemoglobin 9.6 g/dL (12.9-16.9); Segmented Neutrophils % 79.2 %
[2017-07-16 06:03] LABS: Eosinophils # 0.1 K/mcL (0.0-0.6); Hematocrit 28.2 % (37.5-50.1); Immature Granulocytes % 1.3 % (0-4); Immature Platelets 2.4 % (1.1-6.1); Lymphocytes % 10.1 %; Mean Corpuscular Hemoglobin 28.7 pg (28.0-33.3); Mean Corpuscular Volume 84.4 fL (83.0-100.0); Mean Platelet Volume 11.8 fL (9.4-12.4); Red Blood Count 3.34 M/mcL (4.19-5.50); Red Cell Distribution Width 14.8 % (11.5-14.5)
--- NOTE | 2017-07-16 06:03 | Internal Med Progress Note ---
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 Castaneda for Wallace cirrhosis, to see Dr. Castaneda as outpatient upon discharge This morning his abdomen appears slightly distended and is somewhat firm to palpation No gross ascites noted but patient may benefit from regular paracentesis should ascites persist This is to be discussed with Dr. Castaneda during outpatient follow-up Closely monitoring hemodynamic status, hemodynamically stable (2) Cirrhosis of liver with ascites Current Visit: Yes Status: Acute Assessment and plan: See above Qualifiers: Hepatic cirrhosis type: unspecified hepatic cirrhosis Qualified Code(s): K74.60 - Unspecified cirrhosis of liver; R18.8 - Other ascites (3) HTN (hypertension) Current Visit: No Status: Chronic Assessment and plan: History of HTN, remains hemodynamically stable, continue anti-HTN medications Qualifiers: Hypertension type: unspecified Qualified Code(s): I10 - Essential (primary ) hypertension (4) CKD (chronic kidney disease) Current Visit: No Status: Chronic Assessment and plan: CKD stage IV, GFR typically 15-[address] Negron-nephrology following-D/W patient regarding need for BACK UP MACHINE OPERATOR if no improvement in renal function Acute kidney injury on chronic renal disease Creatinine 6.07 this morning IVF has completed, continue to monitor renal function and avoid nephrotoxins if possible Urine studies pending, CPK WNL uric acid level elevated indicative of decreased renal clearance Qualifiers: Chronic kidney disease stage: stage 4 (severe) Qualified Code(s): N18.4 - Chronic kidney disease, stage 4 (severe) (5) DMII (diabetes mellitus, type 2) Current Visit: Yes Status: Acute Assessment and plan: History of type 2 diabetes Continue sliding scale insulin coverage Blood glucose remains stable throughout the stay Qualifiers: Diabetes mellitus computer terminal operator insulin use: without computer terminal operator use Diabetes mellitus complication status: without complication Qualified Code(s): E11.9 - Type 2 diabetes mellitus without complications (6) Renal failure (ARF), acute on chronic Current Visit: Yes Status: Acute Assessment and plan: Please see above Qualifiers: Acute renal failure type: unspecified Chronic kidney disease stage: stage 4 (severe) Qualified Code(s): N17.9 - Acute kidney failure, unspecified; N18.4 - Chronic kidney disease, stage 4 (severe) (7) Anemia Current Visit: Yes Status: Acute Assessment and plan: Anemia of unclear etiology Decrease in hemoglobin following a paracentesis No obvious signs of bleeding, patient remains hemodynamically stable Continue to Monitor closely Qualifiers: Anemia type: unspecified type Qualified Code(s): D64.9 - Anemia, unspecified - Time Spent With Patient Total time spent is greater than 50% in coordination of care (as documented) at patient's floor/unit and/or counseling patient: 25 - 35 minutes - Subjective Interval history: no acute changes overnight, no complications following paracentesis. Denies any abdominal pain/swelling. No further concerns or questions at this time - Constitutional Vitals: Temp Pulse Resp BP Pulse Ox 97.6 F 73 15 117/76 97 07/16/17 04:14 07/16/17 04:14 07/16/17 04:14 07/16/17 04:14 07/16/17 04:14 General appearance: Present: A&O X 3 - Head Head exam: Present: atraumatic, normocephalic - Eye Eye exam: Present: PERRL, conjuntiva pink, sclera anicteric Pupils: Present: PERRL - Neck Neck exam general surgery: Present: supple, trachea midline. Absent: lymphadenopathy - Respiratory Respiratory exam: Present: CTAB. Absent: accessory muscle use, rales, respiratory distress, rhonchi, wheezes, tachypnea - Cardiovascular Cardiovascular exam: Present: RRR, +S1, +S2, systolic murmur. Absent: diastolic murmur, gallop, rubs - GI/Abdominal GI/Abdominal exam: Present: distended (Minimal abdominal distention, history of Wallace cirrhosis. No gross distention), firm, normal bowel sounds, soft. Absent : rigid, tenderness - Extremities Exam Extremities exam: Present: warm, radial pulses palpable and symmetrical. Absent : calf tenderness, cyanotic, pedal edema - Neurological Exam Neurological exam: Present: CN II-XII intact, oriented X3, no focal deficits. Absent: pronater drift, facial droop, speech deficit - Skin Skin exam: Present: dry, intact Internal Medicine: Result - Labs CBC & Chem 7: 07/16/17 04:26 07/16/17 04:26 Labs: Short CBC 07/15/17 Range/Units 06:21 Hgb 9.5 L (12.9-16.9) g/dL Hct 27.8 L (37.5-50.1) % - ABG Interpretation ABG results: PT/INR, D-dimer PT 14.0 Seconds (9.4-12.1) H 07/12/17 19:09 Consult Discharge Plan - Plan Referrals: Tere Castellanos CNP [Primary Care Provider] - 07/20/17 10:00 am
[2017-07-16 06:04] LABS: Basophils % 0.2 %; Lymphocytes # 0.5 K/mcL (0.6-4.6); Monocytes # 0.4 K/mcL (0.0-1.3); Monocytes % 8.2 %; Neutrophils # 4.2 K/mcL (1.6-8.9); Nucleated Red Blood Cells 0.4 /100 WBC (0)
[2017-07-16 06:09] LABS: Platelet Count 69 K/mcL (140-400)
[2017-07-16 06:22] LABS: Calcium 7.8 mg/dL (8.6-10.3); Potassium 3.7 mEq/L (3.5-5.1)
[2017-07-16] MEDS: Insulin LISPRO 300 UNITS/3 ML VIAL SQ SCH ×3 (08:14→16:52)
[2017-07-16 08:38] LABS: Sodium, Urine 19.5 mEq/L
[2017-07-16] MEDS: Ascorbic Acid 500 MG TABLET PO SCH ×2 (08:53→19:54)
[2017-07-16] MEDS: *HR* Repaglinide 1 MG TABLET PO SCH (08:53)
[2017-07-16] MEDS: Fenofibrate 54 MG TABLET PO SCH (08:54)
[2017-07-16] MEDS: amLODIPine 5 MG TABLET PO SCH ×2 (08:55→19:54)
--- NOTE | 2017-07-16 12:18 | Nephrology Progress Note ---
Date of Encounter: 07/16/17 - Assessment and Plan (1) MORRO (acute kidney injury) Current Visit: Yes Status: Acute SCr worse at 5.93, GFR 9 after paracentesis yesterday, high volume despite albumin infusion and also notable hgb in hgb from 11.3 to 8.4 Discussed at great length worsening renal fxn and the need for RUBBER TILE FLOOR LAYER if no improvement. pt wants to wait for 24hrs of IVF before decision, which is reasonable Continue to avoid nephrotoxins if possible Will check urine studies, cpk and uric acid levels if not already done (2) CKD (chronic kidney disease) stage 4, GFR 15-29 ml/min Current Visit: Yes Status: Acute GFR typically 15-20 (3) Cirrhosis of liver with ascites Current Visit: Yes Status: Acute s/p paracentesis, will monitor Qualifiers: Hepatic cirrhosis type: unspecified hepatic cirrhosis Qualified Code(s): K74.60 - Unspecified cirrhosis of liver; R18.8 - Other ascites (4) Anemia Current Visit: Yes Status: Acute Hgb dropped from 11.3 to 8.4, etiology unclear but concerning for bleeding, will monitor and primary team to workup Qualifiers: Anemia type: unspecified type Qualified Code(s): D64.9 - Anemia, unspecified Subjective Interval history: Interim events noted, pt seen and examined , well knonw to me from years of monitoring for stage 4 CKD. Pt reports feeling better today after high volume paracentesis yesterday. He admits to poor po intake overall prior to admission Objective - Vital Signs Vital signs: Vital Signs Temp Pulse Resp BP Pulse Ox 07/16/17 11:32 98.1 F 81 14 101/62 96 07/16/17 07:05 97.8 F 74 14 136/83 98 07/16/17 04:14 97.6 F 73 15 117/76 97 07/15/17 23:03 98.2 F 77 14 126/76 98 07/15/17 19:21 97.9 F 72 16 108/73 96 07/15/17 15:51 98.0 F 76 14 123/65 97 Intake and Output 07/15/17 07/16/17 07/16/17 23:59 07:59 15:59 Intake Total 240 / 240 240 / 240 Output Total 0 / 0 Balance 240 / 240 240 / 240 Intake: Oral 240 / 240 240 / 240 Output: Urine 0 / 0 Other: Meal Dinner Breakfast Percent of Meal Consumed 90% 100% # Voids 1 Weight 63 kg Blood Glucose* 135 94 124 Patient Weight 07/16/17 23:59 Weight 63 kg - Lab 07/16/17 04:26 07/16/17 04:26 Most recent lab results Calcium 7.8 mg/dL (8.6-10.3) L 07/16/17 04:26 Urine Creatinine 76 mg/dL 07/16/17 07:45 Urine Sodium 19.5 mEq/L 07/16/17 07:45 Consult Discharge Plan - Plan Referrals: Tere Castellanos CNP [Primary Care Provider] - 07/20/17 10:00 am
[2017-07-17] MEDS: Insulin LISPRO 300 UNITS/3 ML VIAL SQ SCH ×5 (00:12→23:28)
[2017-07-17 08:07] LABS: Hematocrit 30.6 % (37.5-50.1); Hemoglobin 10.1 g/dL (12.9-16.9); Mean Corpuscular Hemoglobin 27.4 pg (28.0-33.3); Mean Corpuscular Volume 83.2 fL (83.0-100.0); Red Blood Count 3.68 M/mcL (4.19-5.50); Red Cell Distribution Width 14.9 % (11.5-14.5)
[2017-07-17 08:09] LABS: Platelet Count 77 K/mcL (140-400)
[2017-07-17] MEDS: Ascorbic Acid 500 MG TABLET PO SCH ×2 (09:24→20:58)
[2017-07-17] MEDS: amLODIPine 5 MG TABLET PO SCH ×2 (09:24→20:58)
[2017-07-17] MEDS: Fenofibrate 54 MG TABLET PO SCH (09:24)
[2017-07-17] MEDS: *HR* Repaglinide 1 MG TABLET PO SCH (09:24)
--- NOTE | 2017-07-17 13:43 | Internal Med Progress Note ---
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 This morning his abdomen is increasing distended, firm, and tympanic He reports that his abdomen is approximately the same size as it was when he had paracentesis IR for US guided paracentesis-undergoing paracentesis will need albumin after Follow-up with Dr. Castaneda as an outpatient for continued monitoring Closely monitoring hemodynamic status, hemodynamically stable (2) Cirrhosis of liver with ascites Current Visit: Yes Status: Acute Assessment and plan: See above Qualifiers: Hepatic cirrhosis type: unspecified hepatic cirrhosis Qualified Code(s): K74.60 - Unspecified cirrhosis of liver; R18.8 - Other ascites (3) HTN (hypertension) Current Visit: No Status: Chronic Assessment and plan: History of HTN, remains hemodynamically stable, continue anti-HTN medications Qualifiers: Hypertension type: unspecified Qualified Code(s): I10 - Essential (primary ) hypertension (4) CKD (chronic kidney disease) Current Visit: No Status: Chronic Assessment and plan: CKD stage IV, GFR typically 15-[address] Negron-nephrology following-D/W patient regarding need for ART SALES CONSULTANT if no improvement in renal function ART SALES CONSULTANT was again brought up today and patient is in agreement; Dr. Tucker unaware Acute kidney injury on chronic renal disease Creatinine 6.03 this morning Urine creatinine 76, urine sodium 19.5 Qualifiers: Chronic kidney disease stage: stage 4 (severe) Qualified Code(s): N18.4 - Chronic kidney disease, stage 4 (severe) (5) DMII (diabetes mellitus, type 2) Current Visit: Yes Status: Acute Assessment and plan: History of type 2 diabetes Continue sliding scale insulin coverage Blood glucose remains stable throughout the stay Qualifiers: Diabetes mellitus terminal press operator insulin use: without terminal press operator use Diabetes mellitus complication status: without complication Qualified Code(s): E11.9 - Type 2 diabetes mellitus without complications (6) Renal failure (ARF), acute on chronic Current Visit: Yes Status: Acute Assessment and plan: Please see above Qualifiers: Acute renal failure type: unspecified Chronic kidney disease stage: stage 4 (severe) Qualified Code(s): N17.9 - Acute kidney failure, unspecified; N18.4 - Chronic kidney disease, stage 4 (severe) (7) Anemia Current Visit: Yes Status: Acute Assessment and plan: Anemia of unclear etiology hemoglobin improving No obvious signs of bleeding, patient remains hemodynamically stable Continue to Monitor closely Qualifiers: Anemia type: unspecified type Qualified Code(s): D64.9 - Anemia, unspecified - Time Spent With Patient Total time spent is greater than 50% in coordination of care (as documented) at patient's floor/unit and/or counseling patient: 25 - 35 minutes - Subjective Interval history: no acute changes overnight, patient reporting increase in abdominal swelling. Denies any tenderness. Additionally, reporting a decrease in urinary output. No further concerns or questions at this time - Constitutional Vitals: Temp Pulse Resp BP Pulse Ox 98.0 F 74 18 107/67 97 07/17/17 11:28 07/17/17 11:28 07/17/17 11:28 07/17/17 11:28 07/17/17 11:28 General appearance: Present: A&O X 3 - Head Head exam: Present: atraumatic, normocephalic - Eye Eye exam: Present: PERRL, conjuntiva pink, sclera anicteric Pupils: Present: PERRL - Neck Neck exam general surgery: Present: supple, trachea midline. Absent: lymphadenopathy - Respiratory Respiratory exam: Present: CTAB. Absent: accessory muscle use, rales, rhonchi, wheezes - Cardiovascular Cardiovascular exam: Present: RRR, +S1, +S2. Absent: diastolic murmur, gallop, rubs, systolic murmur - GI/Abdominal GI/Abdominal exam: Present: distended, firm, normal bowel sounds, soft, no peritoneal signs. Absent: tenderness Additional comments: tympanic - Extremities Exam Extremities exam: Present: warm, radial pulses palpable and symmetrical. Absent : calf tenderness, cyanotic, pedal edema - Neurological Exam Neurological exam: Present: CN II-XII intact, oriented X3, no focal deficits. Absent: pronater drift, facial droop, speech deficit - Skin Skin exam: Present: dry, intact Internal Medicine: Result - Labs CBC & Chem 7: 07/17/17 07:43 07/17/17 07:43 Labs: Short CBC 07/17/17 Range/Units 07:43 WBC 5.5 (4.3-11.1) K/mcL Hgb 10.1 L (12.9-16.9) g/dL Hct 30.6 L (37.5-50.1) % Plt Count 77 L (140-400) K/mcL BMP 07/17/17 07:43 Sodium 133 L Potassium 4.0 Chloride 103 Carbon Dioxide 17 L BUN 95 H Creatinine 6.03 H Glucose 114 H Calcium 8.0 L - ABG Interpretation ABG results: PT/INR, D-dimer PT 14.0 Seconds (9.4-12.1) H 07/12/17 19:09 Consult Discharge Plan - Plan Referrals: Tere Castellanos CNP [Primary Care Provider] - 07/20/17 10:00 am
--- NOTE | 2017-07-17 15:20 | IR Procedure Note ---
Date of procedure: 07/17/17 Consent Obtained: Verbal consent, Written consent Timeout: Correct patient and procedure verified, Correct site verified, Time out performed, Skin prep completed Local anesthetic: Lidocaine 1% Indications: Ascites Procedure Performed: Paracentesis Was there an switchboard operator assistant present: No Site/Technique: Ultrasound guided paracentesis Results/Findings: Moderate ascites Estimated blood loss (cc): 0 Complications: None; Tolerated procedure well Post Procedure Treatment Plan: Continue inpatient care Specimen: Serous ascites
--- NOTE | 2017-07-17 18:29 | Nephrology Progress Note ---
Date of Encounter: 07/17/17 Time of Encounter: 12:00 - Assessment and Plan (1) MORRO (acute kidney injury) Current Visit: Yes Status: Acute SCr remains poor at 6.03, GFR 9 but not urgent need for GENERAL MERCHANDISE MANAGER today, will wait till tomorrow for pt to decide Continue to avoid nephrotoxins if possible (2) CKD (chronic kidney disease) stage 4, GFR 15-29 ml/min Current Visit: Yes Status: Acute GFR typically 15-20 (3) Cirrhosis of liver with ascites Current Visit: Yes Status: Acute s/p paracentesis, will monitor Qualifiers: Hepatic cirrhosis type: unspecified hepatic cirrhosis Qualified Code(s): K74.60 - Unspecified cirrhosis of liver; R18.8 - Other ascites (4) Anemia Current Visit: Yes Status: Acute Hgb stabilized back up to 10, likely was dilutional in acute drop, will monitor Qualifiers: Anemia type: unspecified type Qualified Code(s): D64.9 - Anemia, unspecified Subjective Interval history: Pt seen and examined with complaint of abd fullness and hence decerased po intake. He reports more UOP and wants to wait another to decide on GENERAL MERCHANDISE MANAGER Objective - Vital Signs Vital signs: Vital Signs Temp Pulse Resp BP Pulse Ox 07/17/17 16:39 97.8 F 77 19 118/68 99 07/17/17 16:16 97.9 F 74 20 126/75 99 07/17/17 11:28 98.0 F 74 18 107/67 97 07/17/17 07:09 97.6 F 77 19 140/82 99 07/17/17 03:35 97.8 F 77 14 128/74 96 07/16/17 23:43 97.9 F 74 14 148/75 97 07/16/17 19:18 97.6 F 74 16 144/82 97 Intake and Output 07/17/17 07/17/17 07/17/17 07:59 15:59 23:59 Intake Total 240 / 240 Balance 240 / 240 Intake: Oral 240 / 240 Other: Meal Lunch Percent of Meal Consumed 100% # Voids 1 Weight 63.8 kg Blood Glucose* 116 135 104 Patient Weight 07/17/17 23:59 Weight 63.8 kg - Lab 07/17/17 07:43 07/17/17 07:43 Most recent lab results Calcium 8.0 mg/dL (8.6-10.3) L 07/17/17 07:43 Urine Creatinine 76 mg/dL 07/16/17 07:45 Urine Sodium 19.5 mEq/L 07/16/17 07:45 Consult Discharge Plan - Plan Referrals: Tere Castellanos CNP [Primary Care Provider] - 07/20/17 10:00 am
[2017-07-18] MEDS ORDERED: Albumin 25% 25gram/100mL 25 GM/100 ML IV.SOLN IVPB SCH
[2017-07-18] MEDS: Albumin 25% 25gram/100mL 25 GM/100 ML IV.SOLN IVPB SCH ×2 (00:25→09:47)
[2017-07-18 06:37] LABS: Basophils % 0.2 %; Hemoglobin 9.3 g/dL (12.9-16.9); Monocytes % 9.5 %; Red Cell Distribution Width 14.9 % (11.5-14.5)
[2017-07-18 06:39] LABS: Eosinophils % 0.7 %; Hematocrit 26.9 % (37.5-50.1); Immature Granulocytes % 0.7 % (0-4); Lymphocytes # 0.6 K/mcL (0.6-4.6); Lymphocytes % 13.4 %; Mean Corpuscular HGB Conc 34.6 g/dL (31.6-35.5); Mean Corpuscular Hemoglobin 29.1 pg (28.0-33.3); Mean Corpuscular Volume 84.1 fL (83.0-100.0); Mean Platelet Volume 11.1 fL (9.4-12.4); Monocytes # 0.4 K/mcL (0.0-1.3); Neutrophils # 3.1 K/mcL (1.6-8.9); Segmented Neutrophils % 75.5 %
[2017-07-18 06:42] LABS: Platelet Count 62 K/mcL (140-400)
[2017-07-18 06:57] LABS: Calcium 8.1 mg/dL (8.6-10.3); Potassium 4.2 mEq/L (3.5-5.1)
[2017-07-18] MEDS: Insulin LISPRO 300 UNITS/3 ML VIAL SQ SCH ×4 (07:31→20:57)
[2017-07-18] MEDS: *HR* Repaglinide 1 MG TABLET PO SCH (08:55)
[2017-07-18] MEDS: amLODIPine 5 MG TABLET PO SCH ×2 (08:56→20:51)
[2017-07-18] MEDS: Fenofibrate 54 MG TABLET PO SCH (08:56)
[2017-07-18] MEDS: Ascorbic Acid 500 MG TABLET PO SCH ×2 (08:56→20:51)
[2017-07-18] MEDS ORDERED: 0.9 % Sodium Chloride 250 ML IVC PRN (12:28)
[2017-07-18] MEDS ORDERED: *HR* Heparin 10,000 UNIT/10 ML VIAL IV PRN (12:28)
[2017-07-18] MEDS ORDERED: 0.9 % Sodium Chloride 1,000 ML PRIME SCH (12:30)
[2017-07-18 14:17] LABS: Hepatitis B Surface Antigen Nonreactive (Nonreactive)
--- NOTE | 2017-07-18 17:22 | Internal Med Progress Note ---
Date of Encounter: 07/18/17 Time of Encounter: 09:25 - Assessment and plan (1) Cirrhosis of liver with ascites Current Visit: Yes Status: Acute Assessment and plan: TRIVEDI. Pt has had paracentesis x 2. Pt states that he does not notice a difference. Pt with pancytopenia, secondary to TRIVEDI. Continue to monitor labs and pt condition. Follow with Dr. Castaneda outpatient after discharge. Currently, patient is hemodynamically stable. Qualifiers: Hepatic cirrhosis type: unspecified hepatic cirrhosis Qualified Code(s): K74.60 - Unspecified cirrhosis of liver; R18.8 - Other ascites (2) HTN (hypertension) Current Visit: Yes Status: Chronic Assessment and plan: Chronic. Well controlled. Continue home medications. Qualifiers: Hypertension type: unspecified Qualified Code(s): I10 - Essential (primary ) hypertension (3) CKD (chronic kidney disease) Current Visit: Yes Status: Chronic Assessment and plan: Renal function worsening. GFR is 8, serum creatinine 6.54. Nephrology is following. Pt will have dialysis, PermaCath will be placed. Continue to monitor. Qualifiers: Chronic kidney disease stage: stage 5, not on chronic dialysis Qualified Code(s): N18.5 - Chronic kidney disease, stage 5 (4) Renal failure (ARF), acute on chronic Current Visit: Yes Status: Acute Assessment and plan: Plan as above. Qualifiers: Acute renal failure type: unspecified Chronic kidney disease stage: stage 5 , not on chronic dialysis Qualified Code(s): N17.9 - Acute kidney failure, unspecified; N18.5 - Chronic kidney disease, stage 5 (5) DMII (diabetes mellitus, type 2) Current Visit: Yes Status: Acute Assessment and plan: Chronic. A1c 5.8% in May,. Continue SSI, accuchecks achs, diabetic/renal diet. Qualifiers: Diabetes mellitus fpc insulin use: without dedicated intermodal truck driver use Diabetes mellitus complication status: without complication Qualified Code(s): E11.9 - Type 2 diabetes mellitus without complications (6) Decompensated hepatic cirrhosis Current Visit: Yes Status: Acute Assessment and plan: Plan as above. (7) Anemia Current Visit: Yes Status: Acute Qualifiers: Anemia type: unspecified type Qualified Code(s): D64.9 - Anemia, unspecified - Time Spent With Patient Total time spent is greater than 50% in coordination of care (as documented) at patient's floor/unit and/or counseling patient: less than 15 minutes - Subjective Interval history: Pt was seen and assessed at 9:25 AM. Patient is alert, awake, oriented, very pleasant. He denies pain. He denies any prior history of renal failure. Patient would like to be evaluated by PT/OT for possible home health after discharge. He does live home alone. Patient reports shortness of breath, states that he is not aware of feeling better after paracentesis 2. He denies headache, nausea, vomiting, diarrhea, abdominal pain, chest pain, headache or dizziness. - Constitutional Vitals: Temp Pulse Resp BP Pulse Ox 97.7 F 75 16 129/63 100 07/18/17 15:11 07/18/17 15:11 07/18/17 15:11 07/18/17 15:11 07/18/17 15:11 General appearance: Present: cooperative, A&O X 3, pleasant, no acute distress, answers questions appropriately - Head Head exam: Present: atraumatic, normal inspection, normocephalic - Eye Eye exam: Present: normal appearance, conjuntiva pink, sclera anicteric - Neck Neck exam general surgery: Present: supple, trachea midline. Absent: lymphadenopathy - Respiratory Respiratory exam: Present: CTAB. Absent: accessory muscle use, chest wall tenderness, decreased breath sounds, rales, rhonchi, wheezes - Cardiovascular Cardiovascular exam: Present: RRR, +S1, +S2. Absent: diastolic murmur, gallop, rubs, systolic murmur - GI/Abdominal GI/Abdominal exam: Present: distended, normal bowel sounds, soft, no peritoneal signs. Absent: hepatomegaly, tenderness Additional comments: Fluid-filled - Extremities Exam Extremities exam: Present: normal capillary refill, normal inspection, warm, radial pulses palpable and symmetrical. Absent: calf tenderness, cyanotic, pedal edema, tenderness - Neurological Exam Neurological exam: Present: alert, oriented X3, no focal deficits, strengths equal and symetr throughout. Absent: facial droop, speech deficit - Skin Skin exam: Present: dry, intact, normal color, warm. Absent: rash Internal Medicine: Result - Labs CBC & Chem 7: 07/18/17 04:58 07/18/17 04:58 Labs: Short CBC 07/18/17 Range/Units 04:58 WBC 4.1 L (4.3-11.1) K/mcL Hgb 9.3 L (12.9-16.9) g/dL Hct 26.9 L (37.5-50.1) % Plt Count 62 L (140-400) K/mcL Neutrophils # 3.1 (1.6-8.9) K/mcL BMP 07/18/17 04:58 Sodium 134 L Potassium 4.2 Chloride 104 Carbon Dioxide 16 L BUN 98 H Creatinine 6.54 H Glucose 85 Calcium 8.1 L - ABG Interpretation ABG results: PT/INR, D-dimer PT 14.0 Seconds (9.4-12.1) H 07/12/17 19:09 - Impressions Impressions Paracentesis Ultrasound 07/17/17 13:35 IMPRESSION: Successful ultrasound guided paracentesis. D/ / 07/17/2017 15:34:09 Devon Treviño MD / vincent Interpreting Provider: Devon Treviño MD Consult Discharge Plan - Plan Referrals: Tere Castellanos, HORTICULTURE/FLORICULTURE TEACHER [Primary Care Provider] - 07/20/17 10:00 am
--- NOTE | 2017-07-18 19:02 | Nephrology Progress Note ---
Date of Encounter: 07/18/17 - Assessment and Plan (1) MORRO (acute kidney injury) Current Visit: Yes Status: Acute SCr remains poor at 6.03, GFR 9 but not urgent need for TESTING AND REGULATING TECHNICIAN today, will wait till tomorrow for pt to decide Continue to avoid nephrotoxins if possible (2) CKD (chronic kidney disease) stage 4, GFR 15-29 ml/min Current Visit: Yes Status: Acute GFR typically 15-20 (3) Cirrhosis of liver with ascites Current Visit: Yes Status: Acute s/p paracentesis, will monitor Qualifiers: Hepatic cirrhosis type: unspecified hepatic cirrhosis Qualified Code(s): K74.60 - Unspecified cirrhosis of liver; R18.8 - Other ascites (4) Anemia Current Visit: Yes Status: Acute Hgb stabilized back up to 10, likely was dilutional in acute drop, will monitor Qualifiers: Anemia type: unspecified type Qualified Code(s): D64.9 - Anemia, unspecified Subjective Interval history: Pt seen and examined with complaint of abd fullness and hence decerased po intake. He reports more UOP and wants to wait another to decide on TESTING AND REGULATING TECHNICIAN Objective - Vital Signs Vital signs: Vital Signs Temp Pulse Resp BP Pulse Ox 07/18/17 15:11 97.7 F 75 16 129/63 100 07/18/17 11:14 98 F 59 16 115/72 96 07/18/17 07:22 98 F 73 16 138/78 97 07/17/17 22:55 98.2 F 74 16 116/66 96 07/17/17 19:39 98.7 F 77 16 130/73 97 Intake and Output 07/18/17 07/18/17 07/18/17 07:59 15:59 23:59 Intake Total 100 / 100 0 / 0 Output Total 0 / 0 Balance 100 / 100 0 / 0 Intake: IV Fluids 100 / 100 Flexbumin 25 gm In 100 ml @ 60 100 / 100 mls/hr IVPB Q8HR [facility] Rx#: [id number] Oral 0 / 0 Output: Urine 0 / 0 Other: Weight 54.204 kg Blood Glucose* 100 208 Patient Weight 07/18/17 23:59 Weight 54.204 kg - Lab 07/18/17 04:58 07/18/17 04:58 Most recent lab results Calcium 8.1 mg/dL (8.6-10.3) L 07/18/17 04:58 Urine Creatinine 76 mg/dL 07/16/17 07:45 Urine Sodium 19.5 mEq/L 07/16/17 07:45 Consult Discharge Plan - Plan Referrals: Tere Castellanos CNP [Primary Care Provider] - 07/20/17 10:00 am
[2017-07-19 03:47] LABS: Hepatitis B Surface Antibody 0.06 mIU/mL
[2017-07-19 06:05] LABS: Mean Corpuscular Volume 83.6 fL (83.0-100.0); Red Cell Distribution Width 14.9 % (11.5-14.5)
[2017-07-19 06:07] LABS: Basophils % 0.2 %; Eosinophils % 0.8 %; Hemoglobin 9.2 g/dL (12.9-16.9); Immature Granulocytes % 1.9 % (0-4); Lymphocytes # 0.5 K/mcL (0.6-4.6); Lymphocytes % 9.8 %; Mean Corpuscular HGB Conc 34.1 g/dL (31.6-35.5); Mean Corpuscular Hemoglobin 28.5 pg (28.0-33.3); Mean Platelet Volume 11.7 fL (9.4-12.4); Monocytes # 0.5 K/mcL (0.0-1.3); Monocytes % 9.6 %; Nucleated Red Blood Cells 0.4 /100 WBC (0); Red Blood Count 3.23 M/mcL (4.19-5.50); Segmented Neutrophils % 77.7 %
[2017-07-19 06:11] LABS: Neutrophils # 4.1 K/mcL (1.6-8.9); Platelet Count 63 K/mcL (140-400)
[2017-07-19 06:20] LABS: Calcium 7.8 mg/dL (8.6-10.3); Potassium 4.1 mEq/L (3.5-5.1)
[2017-07-19] MEDS: Ascorbic Acid 500 MG TABLET PO SCH ×2 (08:42→20:50)
[2017-07-19] MEDS: Insulin LISPRO 300 UNITS/3 ML VIAL SQ SCH ×4 (08:43→21:15)
[2017-07-19] MEDS: *HR* Repaglinide 1 MG TABLET PO SCH (08:43)
[2017-07-19] MEDS: amLODIPine 5 MG TABLET PO SCH ×2 (08:43→20:50)
[2017-07-19] MEDS: Fenofibrate 54 MG TABLET PO SCH (08:43)
[2017-07-19] MEDS ORDERED: Heparin 1,000 UNITS/500 mL 500 ML ONE (09:07)
[2017-07-19] MEDS ORDERED: ceFAZolin 2,000 MG in Water for inj. (sterile) 20 ML 20 ML IVP ONE (09:37)
[2017-07-19] MEDS ORDERED: *HR* Midazolam HCl 2 MG/2 ML VIAL IVP ONE (09:37)
[2017-07-19] MEDS ORDERED: *HR* FentaNYL (PF) 100 MCG/2 ML VIAL IVP ONE (09:38)
--- NOTE | 2017-07-19 09:39 | Pre-Sedation Evaluation ---
Pre-sedation evaluation - Pre-sedation checklist Date of procedure: 07/17/17 Procedure: permacath Recent Vitals: Last Vital Signs Temp 98.0 F 07/19/17 06:41 Pulse 80 07/19/17 06:41 Resp 13 07/19/17 06:41 BP 112/92 07/19/17 06:41 Pulse Ox 97 07/19/17 06:41 Dietary Status: NPO after Midnight ASA Classification *see protocol: CLASS II-Mild systemic disease Plan of Care: Pt appropriate candidate for procedure/moderate/conscious sedation , Risks/benefits of procedure/sedation discussed w/ patient/family
[2017-07-19] MEDS ORDERED: 0.9 % Sodium Chloride 500 ML ONE (09:54)
[2017-07-19] MEDS ORDERED: CeFAZolin Premix DUPLEX 2,000 MG/50 ML BAG IVPB ONE (10:00)
[2017-07-19] MEDS ORDERED: *HR* Heparin 5,000 UNIT/ML VIAL ONE (10:13)
--- NOTE | 2017-07-19 10:19 | IR Procedure Note ---
Date of procedure: 07/19/17 Consent Obtained: Written consent Timeout: Correct patient and procedure verified, Time out performed, Skin prep completed Local anesthetic: Lidocaine 1% Indications: CRF Procedure Performed: Permacath placement Was there an secretary administrative assistant present: No Results/Findings: RIJ 14F 24cm Andrea-Split TDC Estimated blood loss (cc): 2 Complications: None; Tolerated procedure well Post Procedure Treatment Plan: Monitor on floor Specimen: None
[2017-07-19] MEDS ORDERED: *HR* Heparin 10,000 UNIT/10 ML VIAL IV PRN (11:15)
[2017-07-19] MEDS ORDERED: 0.9 % Sodium Chloride 250 ML IVC PRN (11:15)
[2017-07-19] MEDS ORDERED: 0.9 % Sodium Chloride 1,000 ML PRIME SCH (11:15)
[2017-07-19] MEDS ORDERED: 0.9 % Sodium Chloride 1,000 ML ONE (13:29)
--- NOTE | 2017-07-19 18:51 | Internal Med Progress Note ---
Date of Encounter: 07/19/17 Time of Encounter: 13:00 - Assessment and plan (1) Cirrhosis of liver with ascites Current Visit: Yes Status: Acute Assessment and plan: TRIVEDI. Pt with pancytopenia, secondary to TRIVEDI. Continue to monitor labs and pt condition. Follow with Dr. Castaneda outpatient after discharge. Qualifiers: Hepatic cirrhosis type: unspecified hepatic cirrhosis Qualified Code(s): K74.60 - Unspecified cirrhosis of liver; R18.8 - Other ascites (2) HTN (hypertension) Current Visit: Yes Status: Chronic Assessment and plan: Chronic. stable. Continue home medications. Qualifiers: Hypertension type: unspecified Qualified Code(s): I10 - Essential (primary ) hypertension (3) CKD (chronic kidney disease) Current Visit: Yes Status: Chronic Assessment and plan: Renal function worsening. GFR is 8, serum creatinine 6.42. Nephrology is following. Dialysis today. Repeat labs in the a.m. Continue to monitor. Qualifiers: Chronic kidney disease stage: stage 5, not on chronic dialysis Qualified Code(s): N18.5 - Chronic kidney disease, stage 5 (4) Renal failure (ARF), acute on chronic Current Visit: Yes Status: Acute Assessment and plan: Dialysis, continue to monitor labs. Qualifiers: Acute renal failure type: unspecified Chronic kidney disease stage: stage 5 , not on chronic dialysis Qualified Code(s): N17.9 - Acute kidney failure, unspecified; N18.5 - Chronic kidney disease, stage 5 (5) DMII (diabetes mellitus, type 2) Current Visit: Yes Status: Acute Assessment and plan: Chronic. Well controlled. A1c 5.8% in May,. Continue SSI, accuchecks achs, diabetic/renal diet. Qualifiers: Diabetes mellitus roasterman insulin use: without alf use Diabetes mellitus complication status: without complication Qualified Code(s): E11.9 - Type 2 diabetes mellitus without complications (6) Decompensated hepatic cirrhosis Current Visit: Yes Status: Acute Assessment and plan: Plan as above. (7) Anemia Current Visit: Yes Status: Acute Assessment and plan: Anemia, most likely anemia of chronic disease. hemoglobin stable, steady No obvious signs of bleeding, patient remains hemodynamically stable Continue to monitor Type and screen completed. Qualifiers: Anemia type: unspecified type Qualified Code(s): D64.9 - Anemia, unspecified - Time Spent With Patient Total time spent is greater than 50% in coordination of care (as documented) at patient's floor/unit and/or counseling patient: less than 15 minutes - Subjective Interval history: Pt was seen and assessed at 1300. Patient is alert, awake, oriented, very pleasant. He is undergoing dialysis in acute dialysis department. He denies pain. Patient reports shortness of breath continues. He denies headache, nausea, vomiting, diarrhea, abdominal pain, chest pain, headache or dizziness. - Constitutional Vitals: Temp Pulse Resp BP Pulse Ox 98.4 F 84 15 111/69 99 07/19/17 16:32 07/19/17 16:32 07/19/17 16:32 07/19/17 16:32 07/19/17 16:32 General appearance: Present: cooperative, A&O X 3, pleasant, no acute distress, answers questions appropriately - Head Head exam: Present: atraumatic, normal inspection, normocephalic - Eye Eye exam: Present: normal appearance, conjuntiva pink, sclera anicteric - Neck Neck exam general surgery: Present: supple, trachea midline. Absent: lymphadenopathy, tenderness - Respiratory Respiratory exam: Present: CTAB. Absent: accessory muscle use, chest wall tenderness, rales, respiratory distress, rhonchi, wheezes - Cardiovascular Cardiovascular exam: Present: RRR, +S1, +S2. Absent: diastolic murmur, gallop, rubs, systolic murmur - GI/Abdominal GI/Abdominal exam: Present: normal bowel sounds, soft. Absent: distended, hepatomegaly, tenderness - Extremities Exam Extremities exam: Present: normal capillary refill, normal inspection, warm, radial pulses palpable and symmetrical. Absent: calf tenderness, cyanotic, pedal edema, tenderness - Neurological Exam Neurological exam: Present: alert, oriented X3, no focal deficits. Absent: facial droop, speech deficit - Skin Skin exam: Present: dry, intact, normal color, warm. Absent: rash Internal Medicine: Result - Labs CBC & Chem 7: 07/19/17 05:39 07/19/17 05:39 Labs: Short CBC 07/19/17 Range/Units 05:39 WBC 5.3 (4.3-11.1) K/mcL Hgb 9.2 L (12.9-16.9) g/dL Hct 27.0 L (37.5-50.1) % Plt Count 63 L (140-400) K/mcL Neutrophils # 4.1 (1.6-8.9) K/mcL BMP 07/19/17 05:39 Sodium 135 L Potassium 4.1 Chloride 105 Carbon Dioxide 15 L BUN 105 H Creatinine 6.42 H Glucose 81 Calcium 7.8 L - ABG Interpretation ABG results: PT/INR, D-dimer PT 14.0 Seconds (9.4-12.1) H 07/12/17 19:09 - Impressions Impressions Guidance Needle Placement Ultrasound 07/19/17 00:00 IMPRESSION: 1. Right internal jugular vein tunneled dialysis catheter placement as discussed above. D/ / Nilesh Perez MD / Nilesh Perez MD Interpreting Provider: Nilesh Perez MD Insertion Tunneled Catheter 07/19/17 00:00 IMPRESSION: 1. Right internal jugular vein tunneled dialysis catheter placement as discussed above. D/ / Nilesh Perez MD / Nilesh Perez MD Interpreting Provider: Nilesh Perez MD Consult Discharge Plan - Plan Referrals: Tere Castellanos CNP [Primary Care Provider] - 07/20/17 10:00 am
--- NOTE | 2017-07-19 18:57 | Nephrology Progress Note ---
Date of Encounter: 07/19/17 Time of Encounter: 12:00 - Assessment and Plan (1) MORRO (acute kidney injury) Current Visit: Yes Status: Acute SCr remains poor at 6.42, GFR 8, will start HD today Continue to avoid nephrotoxins if possible (2) CKD (chronic kidney disease) stage 4, GFR 15-29 ml/min Current Visit: Yes Status: Acute GFR typically 15-20 (3) Cirrhosis of liver with ascites Current Visit: Yes Status: Acute s/p paracentesis, will monitor Qualifiers: Qualified Code(s): K74.60 - Unspecified cirrhosis of liver; R18.8 - Other ascites (4) Anemia Current Visit: Yes Status: Acute Hgb stabilized back up to 10, likely was dilutional in acute drop, will monitor Qualifiers: Qualified Code(s): D64.9 - Anemia, unspecified Subjective Interval history: Pt seen and examined fatigues after permcath placed today (was not done yesterday as he was not NPO for sedation) Objective - Vital Signs Vital signs: Vital Signs Temp Pulse Resp BP Pulse Ox 07/19/17 16:32 98.4 F 84 15 111/69 99 07/19/17 14:00 96.9 F L 18 130/54 07/19/17 13:40 118/58 07/19/17 13:25 133/68 07/19/17 13:10 121/57 07/19/17 12:55 129/68 07/19/17 12:40 137/66 07/19/17 12:25 117/72 07/19/17 12:10 100/49 07/19/17 11:55 104/65 07/19/17 11:40 96.6 F L 18 111/62 07/19/17 10:44 97.4 F L 80 12 132/81 97 07/19/17 10:10 78 16 129/64 100 07/19/17 10:05 74 25 119/67 100 07/19/17 09:58 74 15 142/82 07/19/17 06:41 98.0 F 80 13 112/92 97 07/19/17 04:52 98 F 72 16 128/65 97 07/19/17 00:22 98.5 F 76 18 99/55 96 07/18/17 22:15 99 06/05/18 20:39 97.7 F 70 18 130/69 99 Intake and Output 07/19/17 07/19/17 07/19/17 07:59 15:59 23:59 Intake Total 0 / 0 650 / 650 Output Total 150 / 150 1100 / 1100 Balance -150 / -150 -450 / -450 Intake: Oral 0 / 0 50 / 50 Intake, Rinseback and Flushes 600 / 600 Output: Urine 150 / 150 0 / 0 Total Dialysis (HD) Output 1100 / 1100 Other: Meal npo breakfast Stool Size Small Moderate Stool Consistency soft formed Stool Color Brown Brown # Voids 1 # Bowel Movements 1 Blood Glucose* 91 87 103 Hemodialysis Net Fluid Removed 500 (mL) - Lab 07/19/17 05:39 07/19/17 05:39 Most recent lab results Calcium 7.8 mg/dL (8.6-10.3) L 07/19/17 05:39 Urine Creatinine 76 mg/dL 07/16/17 07:45 Urine Sodium 19.5 mEq/L 07/16/17 07:45 Consult Discharge Plan - Plan Referrals: Tere Castellanos CNP [Primary Care Provider] - 07/20/17 10:00 am
[2017-07-20 06:38] LABS: Basophils % 0.4 %; Immature Granulocytes % 1.1 % (0-4)
[2017-07-20 06:41] LABS: Eosinophils # 0.1 K/mcL (0.0-0.6); Eosinophils % 0.9 %; Hematocrit 28.8 % (37.5-50.1); Hemoglobin 9.6 g/dL (12.9-16.9); Immature Platelets 3.5 % (1.1-6.1); Lymphocytes % 11.5 %; Mean Corpuscular HGB Conc 33.3 g/dL (31.6-35.5); Mean Corpuscular Hemoglobin 28.2 pg (28.0-33.3); Mean Corpuscular Volume 84.5 fL (83.0-100.0); Monocytes # 0.6 K/mcL (0.0-1.3); Monocytes % 11.2 %; Neutrophils # 4.2 K/mcL (1.6-8.9); Red Blood Count 3.41 M/mcL (4.19-5.50); Red Cell Distribution Width 15.1 % (11.5-14.5); Segmented Neutrophils % 74.9 %
[2017-07-20 06:42] LABS: Lymphocytes # 0.6 K/mcL (0.6-4.6); Platelet Count 36 K/mcL (140-400)
[2017-07-20 07:00] LABS: Calcium 7.8 mg/dL (8.6-10.3); Potassium 4.1 mEq/L (3.5-5.1)
[2017-07-20] MEDS ORDERED: 0.9 % Sodium Chloride 250 ML IVC PRN (07:33)
[2017-07-20] MEDS ORDERED: *HR* Heparin 10,000 UNIT/10 ML VIAL IV PRN (07:33)
[2017-07-20] MEDS ORDERED: 0.9 % Sodium Chloride 1,000 ML PRIME SCH (07:45)
[2017-07-20] MEDS: *HR* Repaglinide 1 MG TABLET PO SCH (08:21)
[2017-07-20] MEDS: Ascorbic Acid 500 MG TABLET PO SCH ×2 (08:21→21:22)
[2017-07-20] MEDS: Insulin LISPRO 300 UNITS/3 ML VIAL SQ SCH ×4 (08:23→21:23)
[2017-07-20] MEDS ORDERED: 0.9 % Sodium Chloride 1,000 ML ONE (08:27)
[2017-07-20] MEDS: amLODIPine 5 MG TABLET PO SCH ×2 (13:57→21:22)
--- NOTE | 2017-07-20 15:17 | Nephrology Progress Note ---
Date of Encounter: 07/21/17 Time of Encounter: 12:00 - Assessment and Plan (1) MORRO (acute kidney injury) Current Visit: Yes Status: Acute Second HD session, will continue and plan for third then plan for discharge Continue to avoid nephrotoxins if possible (2) CKD (chronic kidney disease) stage 4, GFR 15-29 ml/min Current Visit: Yes Status: Acute GFR typically 15-20 (3) Cirrhosis of liver with ascites Current Visit: Yes Status: Acute s/p paracentesis X2, will monitor Qualifiers: Hepatic cirrhosis type: unspecified hepatic cirrhosis Qualified Code(s): K74.60 - Unspecified cirrhosis of liver; R18.8 - Other ascites (4) Anemia Current Visit: Yes Status: Acute Hgb stable at 9.6, will monitor Qualifiers: Anemia type: unspecified type Qualified Code(s): D64.9 - Anemia, unspecified Subjective Interval history: Pt seen and examined on HD for second session. Concerned about discharge and rehab. Objective - Vital Signs Vital signs: Vital Signs Temp Pulse Resp BP Pulse Ox 07/20/17 12:31 97.2 F L 16 101/57 07/20/17 12:05 96/68 07/20/17 11:50 101/62 07/20/17 11:35 108/63 07/20/17 11:20 102/55 07/20/17 11:05 112/61 07/20/17 10:50 95/54 07/20/17 10:35 91/56 07/20/17 10:20 102/72 07/20/17 10:05 102/64 07/20/17 09:50 85/50 07/20/17 09:35 81/46 07/20/17 09:20 84/50 07/20/17 09:05 97.3 F L 18 135/69 07/20/17 08:21 97.5 F L 73 16 117/63 96 07/20/17 05:00 98.2 F 85 16 117/70 98 07/19/17 21:17 98.6 F 90 16 127/76 98 07/19/17 16:32 98.4 F 84 15 111/69 99 Intake and Output 07/19/17 07/20/17 07/20/17 23:59 07:59 15:59 Intake Total 120 / 120 750 / 750 Output Total 1463 / 1463 Balance 120 / 120 -713 / -713 Intake: Oral 120 / 120 150 / 150 Intake, Rinseback and Flushes 600 / 600 Output: Urine 0 / 0 Total Dialysis (HD) Output 1463 / 1463 Other: Meal Breakfast Percent of Meal Consumed 60% Stool Size Small Stool Consistency soft Stool Color Brown # Urine Diapers 2 # Bowel Movement Diapers 1 Weight 55.2 kg Blood Glucose* 194 94 Hemodialysis Net Fluid Removed 863 (mL) Patient Weight 07/20/17 23:59 Weight 55.2 kg - General Appearance General appearance: Present: chronically ill (NAD), fatigue EENT: Present: ATNC, mucous membranes moist Neck: Present: no JVD, supple Respiratory: Present: clear Cardiology: Present: no edema, normal S1, normal S2 Dialysis Vascular Access: Venous Catheter (permcath) Gastrointestinal: Present: no tenderness, no guarding Integumentary: Present: warm and dry Neurologic: Present: no focal deficit Musculoskeletal: Present: no deformities Psychiatric: Present: mood/affect appropriate, cooperative - Lab 07/20/17 06:07 07/20/17 06:07 Most recent lab results Calcium 7.8 mg/dL (8.6-10.3) L 07/20/17 06:07 Urine Creatinine 76 mg/dL 07/16/17 07:45 Urine Sodium 19.5 mEq/L 07/16/17 07:45 Consult Discharge Plan - Plan Referrals: Tere Castellanos CNP [Primary Care Provider] - 07/20/17 10:00 am
--- NOTE | 2017-07-20 16:41 | Internal Med Progress Note ---
Date of Encounter: 07/20/17 Time of Encounter: 09:15 - Assessment and plan (1) Cirrhosis of liver with ascites Current Visit: Yes Status: Acute Assessment and plan: TRIVEDI. Pt with pancytopenia, secondary to TRIVEDI. Platelets decreased today to 36. Hemoglobin is remaining stable around 9.6. Continue to monitor labs and pt condition. Follow with Dr. Castaneda outpatient after discharge. Qualifiers: Hepatic cirrhosis type: unspecified hepatic cirrhosis Qualified Code(s): K74.60 - Unspecified cirrhosis of liver; R18.8 - Other ascites (2) HTN (hypertension) Current Visit: Yes Status: Chronic Assessment and plan: Stable. Continue home medications. Qualifiers: Hypertension type: unspecified Qualified Code(s): I10 - Essential (primary ) hypertension (3) CKD (chronic kidney disease) Current Visit: Yes Status: Chronic Assessment and plan: Renal function improving with D2 dialysis. GFR is 11, serum creatinine 5.02. Nephrology is following. I appreciate their assistance and recommendations. Dialysis #2 today, we will plan for third day tomorrow and work on discharge. Repeat labs in the a.m. Continue to monitor. Qualifiers: Chronic kidney disease stage: stage 5, not on chronic dialysis Qualified Code(s): N18.5 - Chronic kidney disease, stage 5 (4) Renal failure (ARF), acute on chronic Current Visit: Yes Status: Acute Assessment and plan: Dialysis x3, continue to monitor labs. Plan as above. Qualifiers: Acute renal failure type: unspecified Chronic kidney disease stage: stage 5 , not on chronic dialysis Qualified Code(s): N17.9 - Acute kidney failure, unspecified; N18.5 - Chronic kidney disease, stage 5 (5) DMII (diabetes mellitus, type 2) Current Visit: Yes Status: Acute Assessment and plan: Chronic. Continue SSI, accuchecks achs, diabetic/renal diet. Qualifiers: Diabetes mellitus lobsterman insulin use: without chcf use Diabetes mellitus complication status: without complication Qualified Code(s): E11.9 - Type 2 diabetes mellitus without complications (6) Decompensated hepatic cirrhosis Current Visit: Yes Status: Acute Assessment and plan: Plan as above. (7) Anemia Current Visit: Yes Status: Acute Assessment and plan: Anemia, most likely anemia of chronic disease. Hemoglobin is remaining stable around 9.6. No obvious signs of bleeding, patient remains hemodynamically stable Continue to monitor Type and screen completed. Preparing to transfuse if hemoglobin less than 8. Qualifiers: Anemia type: unspecified type Qualified Code(s): D64.9 - Anemia, unspecified - Time Spent With Patient Total time spent is greater than 50% in coordination of care (as documented) at patient's floor/unit and/or counseling patient: less than 15 minutes - Subjective Interval history: Pt was seen and assessed at 0915. Patient is alert, awake, oriented, very pleasant, in no acute dialysis. He denies pain. Patient is very pleasant and handles everything very well. He denies headache, nausea, vomiting, diarrhea, abdominal pain, chest pain, headache or dizziness. - Constitutional Vitals: Temp Pulse Resp BP Pulse Ox 97.9 F 83 16 134/76 99 07/20/17 15:31 07/20/17 15:31 07/20/17 15:31 07/20/17 15:31 07/20/17 15:31 General appearance: Present: cooperative, A&O X 3, pleasant, no acute distress, answers questions appropriately - Head Head exam: Present: atraumatic, normal inspection, normocephalic - Eye Eye exam: Present: normal appearance, conjuntiva pink, sclera anicteric - Neck Neck exam general surgery: Present: supple, trachea midline. Absent: lymphadenopathy, tenderness - Respiratory Respiratory exam: Present: CTAB. Absent: accessory muscle use, chest wall tenderness, rales, rhonchi, wheezes - Cardiovascular Cardiovascular exam: Present: RRR, +S1, +S2. Absent: diastolic murmur, gallop, rubs, systolic murmur - GI/Abdominal GI/Abdominal exam: Present: distended, normal bowel sounds, soft. Absent: tenderness - Extremities Exam Extremities exam: Present: normal capillary refill, normal inspection, warm, radial pulses palpable and symmetrical. Absent: calf tenderness, cyanotic, pedal edema, tenderness - Neurological Exam Neurological exam: Present: alert, oriented X3, no focal deficits. Absent: altered, facial droop, speech deficit - Skin Skin exam: Present: dry, intact, normal color, warm. Absent: rash Internal Medicine: Result - Labs CBC & Chem 7: 07/20/17 06:07 07/20/17 06:07 Labs: Short CBC 06/07/18 Range/Units 06:07 WBC 5.6 (4.3-11.1) K/mcL Hgb 9.6 L (12.9-16.9) g/dL Hct 28.8 L (37.5-50.1) % Plt Count 36 L (140-400) K/mcL Neutrophils # 4.2 (1.6-8.9) K/mcL BMP 07/20/17 06:07 Sodium 138 Potassium 4.1 Chloride 106 Carbon Dioxide 20 L BUN 67 H Creatinine 5.02 H Glucose 79 Calcium 7.8 L - ABG Interpretation ABG results: PT/INR, D-dimer PT 14.0 Seconds (9.4-12.1) H 07/12/17 19:09 Consult Discharge Plan - Plan Referrals: Tere Castellanos CNP [Primary Care Provider] - 07/20/17 10:00 am
[2017-07-20] MEDS: *HR* Heparin 5,000 UNIT/ML VIAL SQ SCH (18:11)
--- NOTE | 2017-07-21 00:05 | Event Note ---
Date of Encounter: 07/21/17 Time of Encounter: 15:30 Had a meeting with patient and son ( a separate phone call with daughter as well ) to discuss goals of care. Pt very depressed and questioning whether he would do residential dialysis. Concerned about the logistics with insurance, transportation etc. Also open to ECF for rehab at this time. Pt ultimately agreed to give a couple weeks outpatinet before deciding. Lilly, hospice social worker present for some discussions and will work with pt on rehab placement etc. Son agreeable to plan.
[2017-07-21 05:00] LABS: Basophils % 0.2 %; Red Cell Distribution Width 14.9 % (11.5-14.5)
[2017-07-21 05:02] LABS: Eosinophils % 0.9 %; Hematocrit 27.3 % (37.5-50.1); Immature Granulocytes % 0.7 % (0-4); Immature Platelets 4.3 % (1.1-6.1); Lymphocytes # 0.7 K/mcL (0.6-4.6); Lymphocytes % 14.9 %; Mean Corpuscular Hemoglobin 27.9 pg (28.0-33.3); Mean Corpuscular Volume 84.5 fL (83.0-100.0); Monocytes # 0.6 K/mcL (0.0-1.3); Monocytes % 12.7 %; Neutrophils # 3.1 K/mcL (1.6-8.9); Red Blood Count 3.23 M/mcL (4.19-5.50); Segmented Neutrophils % 70.6 %
[2017-07-21 05:05] LABS: Platelet Count 24 K/mcL (140-400)
[2017-07-21 05:21] LABS: Calcium 7.7 mg/dL (8.6-10.3); Potassium 3.7 mEq/L (3.5-5.1)
[2017-07-21] MEDS: *HR* Heparin 5,000 UNIT/ML VIAL SQ SCH (05:35)
[2017-07-21] MEDS ORDERED: *HR* Heparin 10,000 UNIT/10 ML VIAL IV PRN (07:27)
[2017-07-21] MEDS ORDERED: 0.9 % Sodium Chloride 250 ML IVC PRN (07:27)
[2017-07-21] MEDS ORDERED: 0.9 % Sodium Chloride 1,000 ML PRIME SCH (07:30)
[2017-07-21] MEDS: Insulin LISPRO 300 UNITS/3 ML VIAL SQ SCH ×4 (07:38→22:53)
[2017-07-21] MEDS ORDERED: 0.9 % Sodium Chloride 1,000 ML ONE (07:53)
[2017-07-21] MEDS: Ascorbic Acid 500 MG TABLET PO SCH ×2 (08:16→22:29)
[2017-07-21] MEDS: *HR* Repaglinide 1 MG TABLET PO SCH (08:16)
[2017-07-21] MEDS: amLODIPine 5 MG TABLET PO SCH ×2 (08:57→22:30)
--- NOTE | 2017-07-21 10:14 | Nephrology Progress Note ---
Date of Encounter: 07/21/17 Time of Encounter: 10:12 - Assessment and Plan (1) Renal failure (ARF), acute on chronic Current Visit: Yes Status: Acute Continue to avoid nephrotoxins and renal dose all medications. Renal diet. Strict I/O HD consecutive day 3, tolerating well. Zoie, RN informs that Tunneled line had pressure dressing on it, she removed and replaced dressing. Plt 24, Primary will consult Hematology. Qualifiers: Acute renal failure type: unspecified Chronic kidney disease stage: stage 5 , not on chronic dialysis Qualified Code(s): N17.9 - Acute kidney failure, unspecified; N18.5 - Chronic kidney disease, stage 5 (2) Cirrhosis of liver with ascites Current Visit: Yes Status: Acute Per primary. Qualifiers: Hepatic cirrhosis type: unspecified hepatic cirrhosis Qualified Code(s): K74.60 - Unspecified cirrhosis of liver; R18.8 - Other ascites (3) HTN (hypertension) Current Visit: Yes Status: Chronic BP 136/76. Qualifiers: Hypertension type: unspecified Qualified Code(s): I10 - Essential (primary ) hypertension (4) Thrombocytopenia Current Visit: Yes Status: Acute Plt 24 down from 36, hematology consult per primary team. Subjective Principal diagnosis: Worsening Renal Function Interval history: Pt seen and examined during HD, tolerating well. Objective - Vital Signs Vital signs: Vital Signs Temp Pulse Resp BP Pulse Ox 07/21/17 07:27 98.1 F 84 18 136/76 97 07/21/17 03:55 98.6 F 76 17 128/72 98 07/20/17 22:36 98.6 F 92 17 100/60 100 07/20/17 19:07 98.8 F 94 17 109/73 100 07/20/17 15:31 97.9 F 83 16 134/76 99 07/20/17 12:31 97.2 F L 16 101/57 07/20/17 12:05 96/68 07/20/17 11:50 101/62 07/20/17 11:35 108/63 07/20/17 11:20 102/55 07/20/17 11:05 112/61 07/20/17 10:50 95/54 07/20/17 10:35 91/56 07/20/17 10:20 102/72 Intake and Output 0607/21/17 07/21/17 23:59 07:59 15:59 Intake Total 400 / 400 Output Total 501 / 501 Balance -101 / -101 Intake: Oral 400 / 400 Output: Urine 500 / 500 Stool / Other: Meal Dinner Percent of Meal Consumed 70% Stool Size Moderate Stool Consistency soft formed Stool Color Brown Weight 55.4 kg Blood Glucose* 224 104 Patient Weight 07/21/17 23:59 Weight 55.4 kg - General Appearance General appearance: Present: frail EENT: Present: ATNC, hearing intact, vision intact Neck: Present: supple Respiratory: Present: clear Cardiology: Present: no edema, normal S1, normal S2 Dialysis Vascular Access: Venous Catheter (Tunneled, DRSG C/D/I.) Gastrointestinal: Present: normoactive bowel sounds, no tenderness, no guarding Integumentary: Present: no rash, warm and dry Neurologic: Present: alert and oriented x3 Psychiatric: Present: mood/affect appropriate, cooperative - Lab 07/21/17 04:35 07/21/17 04:35 Most recent lab results Calcium 7.7 mg/dL (8.6-10.3) L 07/21/17 04:35 Urine Creatinine 76 mg/dL 07/16/17 07:45 Urine Sodium 19.5 mEq/L 07/16/17 07:45 Consult Discharge Plan - Plan Referrals: Tere Castellanos CNP [Primary Care Provider] - 07/20/17 10:00 am
--- NOTE | 2017-07-21 13:15 | Internal Med Progress Note ---
Date of Encounter: 07/21/17 Time of Encounter: 13:00 - Assessment and plan (1) Thrombocytopenia Current Visit: Yes Status: Acute Assessment and plan: Possibly from liver disease vs rule out HIT. Prophylactic heparin has been discontinued. Hematology recs appreciated (2) Renal failure (ARF), acute on chronic Current Visit: Yes Status: Acute Assessment and plan: On hemodialysis. Has received 3 sessions. renal following. Qualifiers: Acute renal failure type: unspecified Chronic kidney disease stage: stage 5 , not on chronic dialysis Qualified Code(s): N17.9 - Acute kidney failure, unspecified; N18.5 - Chronic kidney disease, stage 5 (3) HTN (hypertension) Current Visit: Yes Status: Chronic Assessment and plan: Stable. Continue home medications. Qualifiers: Hypertension type: unspecified Qualified Code(s): I10 - Essential (primary ) hypertension (4) CKD (chronic kidney disease) Current Visit: Yes Status: Chronic Assessment and plan: Renal function improving with D2 dialysis. GFR is 11, serum creatinine 5.02. Nephrology is following. I appreciate their assistance and recommendations. Dialysis #2 today, we will plan for third day tomorrow and work on discharge. Repeat labs in the a.m. Continue to monitor. Qualifiers: Chronic kidney disease stage: stage 5, not on chronic dialysis Qualified Code(s): N18.5 - Chronic kidney disease, stage 5 (5) Cirrhosis of liver with ascites Current Visit: Yes Status: Acute Assessment and plan: TRIVEDI. Pt with pancytopenia, secondary to TRIVEDI. s/p paracentesis x 2. Continue to monitor Qualifiers: Hepatic cirrhosis type: unspecified hepatic cirrhosis Qualified Code(s): K74.60 - Unspecified cirrhosis of liver; R18.8 - Other ascites (6) DMII (diabetes mellitus, type 2) Current Visit: Yes Status: Acute Assessment and plan: Chronic. Continue SSI, accuchecks achs, diabetic/renal diet. Qualifiers: Diabetes mellitus fdc insulin use: without fleece tier use Diabetes mellitus complication status: without complication Qualified Code(s): E11.9 - Type 2 diabetes mellitus without complications (7) Decompensated hepatic cirrhosis Current Visit: Yes Status: Acute Assessment and plan: Plan as above. (8) Anemia Current Visit: Yes Status: Acute Assessment and plan: Anemia, most likely anemia of chronic disease. Hemoglobin is remaining stable around 9.6. No obvious signs of bleeding, patient remains hemodynamically stable Continue to monitor Type and screen completed. Preparing to transfuse if hemoglobin less than 8. Qualifiers: Anemia type: unspecified type Qualified Code(s): D64.9 - Anemia, unspecified (9) DVT prophylaxis Current Visit: Yes Status: Acute Assessment and plan: SCDs - Time Spent With Patient Total time spent is greater than 50% in coordination of care (as documented) at patient's floor/unit and/or counseling patient: - Subjective Interval history: No acute events overnight - Constitutional Vitals: Temp Pulse Resp BP Pulse Ox 97.1 F L 84 18 115/64 97 07/21/17 11:55 07/21/17 07:27 07/21/17 11:55 07/21/17 11:55 07/21/17 07:27 General appearance: Present: cooperative, A&O X 3, pleasant, no acute distress, answers questions appropriately - Head Head exam: Present: atraumatic, normocephalic - Eye Eye exam: Present: PERRL, conjuntiva pink, sclera anicteric Pupils: Present: PERRL - Neck Neck exam general surgery: Present: supple, trachea midline. Absent: lymphadenopathy - Respiratory Respiratory exam: Present: CTAB. Absent: accessory muscle use, rales, rhonchi, wheezes - Cardiovascular Cardiovascular exam: Present: RRR, +S1, +S2. Absent: diastolic murmur, gallop, rubs, systolic murmur - GI/Abdominal GI/Abdominal exam: Present: normal bowel sounds, soft, no peritoneal signs. Absent: distended, tenderness - Extremities Exam Extremities exam: Present: warm, radial pulses palpable and symmetrical. Absent : calf tenderness, cyanotic, pedal edema - Neurological Exam Neurological exam: Present: CN II-XII intact, oriented X3, no focal deficits. Absent: pronater drift, facial droop, speech deficit - Skin Skin exam: Present: dry, intact Internal Medicine: Result - Labs CBC & Chem 7: 07/21/17 04:35 07/21/17 04:35 Labs: Short CBC 07/21/17 Range/Units 04:35 WBC 4.4 (4.3-11.1) K/mcL Hgb 9.0 L (12.9-16.9) g/dL Hct 27.3 L (37.5-50.1) % Plt Count 24 L* (140-400) K/mcL Neutrophils # 3.1 (1.6-8.9) K/mcL BMP 07/21/17 04:35 Sodium 136 Potassium 3.7 Chloride 104 Carbon Dioxide 23 BUN 39 H Creatinine 3.42 H Glucose 106 H Calcium 7.7 L - ABG Interpretation ABG results: PT/INR, D-dimer PT 14.0 Seconds (9.4-12.1) H 07/12/17 19:09 Consult Discharge Plan - Plan Referrals: Tere Castellanos CNP [Primary Care Provider] - 07/20/17 10:00 am
--- NOTE | 2017-07-21 15:43 | Palliative - Consult Note ---
Date of Encounter: 07/21/17 Time of Encounter: 16:30 - Assessment and Plan (1) Generalized weakness Current Visit: Yes Status: Acute Assessment and plan: PT/OT on board - pediatric social worker is finalizing d/c plan for ecf for rehab. (2) Counseling regarding advanced care planning and goals of care Current Visit: Yes Status: Acute Assessment and plan: Patient and son at bedside - they stated they had formal goals of care discussion with nephrology last pm and plan is in place for outpatient dialysis and ecf for rehab. He has living will and power of real estate attorney already completed and in medical record. Did discuss code status at length - patient emotional during discussion, reflecting back to his 's recent passing and the families decision for DNR. Discussed differences between DNRA/DNRCC. Patient does not desire CPR/ACLS/Defib for cardiac arrest, and does not want placed on a ventilator. He does desire all other aggressive care up to that point at this time. Code status changed to DNR/DNI, state form completed and signed by patient. Copies placed on chart and given to son. They are familiar with hospice care, and understand that if he would decide to discontinue dialysis, he would benefit from transition to comfort care at that time. D/W Dr. Pike. Anticipate d/c soon. Will sign off - please reconsult if needed. (3) Renal failure (ARF), acute on chronic Current Visit: Yes Status: Acute Qualifiers: Acute renal failure type: unspecified Chronic kidney disease stage: stage 5 , not on chronic dialysis Qualified Code(s): N17.9 - Acute kidney failure, unspecified; N18.5 - Chronic kidney disease, stage 5 (4) Cirrhosis of liver with ascites Current Visit: Yes Status: Acute Qualifiers: Hepatic cirrhosis type: unspecified hepatic cirrhosis Qualified Code(s): K74.60 - Unspecified cirrhosis of liver; R18.8 - Other ascites Palliative-CN HPI - Data of Consult Requesting Physician: Ruthann Redmond CNP Primary Care Provider: Tere Castellanos, - Consult Narrative History of present illness: Mr. Love is an 86 year old that presented to the ED with history of increasing abdominal swelling and shortness of breath. He was admitted and has been followed closely by nephrology, Dr. Serra has seen pt in outpatient setting for many years. Has past medical history of Diabetes, HTN, TRIVEDI, and CKD. He has had a couple of Paracentesis during this admission, and did begin hemodialysis during this stay. He has tolerated well. There was some initial discussion if he desired to proceed with residential dialysis, and nephrology has discussed with patient and son. He is up in chair and comfortable during my visit. Denies any pain, nausea, constipation. Does c/o shortness of breath with exertion and poor appetite. States abdominal distention is improved. Some thrombocytopenia today being addressed by hospitalist. Palliative care was consulted for code status discussion. CC: Ruthann Redmond, PIETER Past Med Surg Social Fam HX - Past Medical History Medical history: non-contributory, cirrhosis, diabetes, GERD, hyperlipidemia, hypertension, renal disease, other Psychiatric history: no psych history - Past Surgical History Surgical History: non-contributory Additional surgical history: LEFT KNEE SURG - Social History Smoking Status: Never smoker Smokeless Tobacco Status: No Alcohol use: none Drug use: none - Family History Mother Adopted: No Family Member Ethnicity: Non- Living Status: Hx Family Cardiac Disorders: No Hx Family Respiratory Disorders: No Hx Family Cancer: No Hx Family GI Disorders: No Hx Family Endocrine Disorder: No Hx Family Neuromuscular Disorders: No Hx Family Neurologic Disorders: No Hx Family HEENT Disorders: No Hx Family Autoimmune Disorders: No Medications and Allergies Ascorbic Acid [Vitamin C] 1,000 mg PO BID 06/04/15 [History] Cholecalciferol (Vitamin D3) [Vitamin D3] 1,000 unit PO DAILY 06/04/15 [History] Esomeprazole Magnesium [Nexium] 40 mg PO DAILY PRN 06/04/15 [History] Carvedilol [Coreg] 6.25 mg PO DAILY 05/05/17 [History] Fenofibrate Nanocrystallized [Tricor] 145 mg PO DAILY 05/05/17 [History] Furosemide [Lasix] 40 mg PO DAILY 05/05/17 [History] amLODIPine [Norvasc] 5 mg PO BID #30 tablet 05/08/17 [Rx] Repaglinide [Prandin] 2 mg PO DAILY 07/12/17 [History] 3 Allergy/AdvReac Type Severity Reaction Status Date / Time Sulfa (Sulfonamide AdvReac See Verified 05/05/17 16:49 Antibiotics) Comments All systems: reviewed and no additional remarkable complaints except as stated ( generalized weakness, shortness of breath with exertion, poor appetite, abd distention) Palliative Care-Exam - Constitutional Vitals: Temp Pulse Resp BP Pulse Ox 98.0 F 102 18 106/62 98 07/21/17 15:38 07/21/17 15:38 07/21/17 15:38 07/21/17 15:38 07/21/17 15:38 General appearance: Present: no acute distress - Head Head Exam: Present: normal inspection, normocephalic - Eye Eye exam: Present: normal appearance, PERRL - Respiratory Respiratory exam: Present: CTAB - Cardiovascular Cardiovascular exam: Present: +S1, +S2 - GI/Abdominal Exam GI/Abdominal exam: Present: diminished bowel sounds, distended, soft - Neurological Exam Neurological exam: Present: alert, oriented X3, strengths equal and symetr throughout - Psychiatric Psychiatric exam: Present: normal affect, normal mood - Skin Skin exam: Present: dry, warm Internal Medicine - CN: Reslt - Labs CBC & Chem 7: 07/21/17 04:35 07/21/17 04:35 Labs: Short CBC 07/21/17 Range/Units 04:35 WBC 4.4 (4.3-11.1) K/mcL Hgb 9.0 L (12.9-16.9) g/dL Hct 27.3 L (37.5-50.1) % Plt Count 24 L* (140-400) K/mcL Neutrophils # 3.1 (1.6-8.9) K/mcL BMP 07/21/17 04:35 Sodium 136 Potassium 3.7 Chloride 104 Carbon Dioxide 23 BUN 39 H Creatinine 3.42 H Glucose 106 H Calcium 7.7 L - ABG Interpretation ABG results: PT/INR, D-dimer PT 14.0 Seconds (9.4-12.1) H 07/12/17 19:09 Consult Discharge Plan - Plan Referrals: Tere Castellanos CNP [Primary Care Provider] - 07/20/17 10:00 am Palliative Quality Palliative Quality: Screen for Code Status: Yes, Screen for Goals of Care: Yes, Screen for Pain: Yes, If Pain Regimen Started, Initiate Bowel Regimen: NA, Screen for Nausea/Vomitting: Yes Code Status: 07/21/17 15:27 DNR [Resuscitation Status: Active] [RES] Routine Comment: Resuscitation Status: [id number]
--- NOTE | 2017-07-21 16:15 | Oncology Inp Consult Note ---
<Ivana Lou - Last Filed: 07/21/17 19:51> Date of Encounter: 07/21/17 Time of Encounter: 16:15 Assessment and Plan (1) Cirrhosis of liver with ascites Status: Acute Assessment and plan: WALLACE S/P paracentesis x2 during hospital stay with a total of about 8 liters removed. Cytology negative for malignant cells. Qualifiers: Hepatic cirrhosis type: unspecified hepatic cirrhosis Qualified Code(s): K74.60 - Unspecified cirrhosis of liver; R18.8 - Other ascites (2) Anemia Status: Acute Assessment and plan: Chronic and appears to be about baseline, hgb 9 Anemia of chronic disease Check B12, folate, Iron, Ferritin, LDH Denies melena, hematochezia or hematemesis Qualifiers: Anemia type: unspecified type Qualified Code(s): D64.9 - Anemia, unspecified (3) Thrombocytopenia Status: Acute Assessment and plan: Chronic although below baseline with platelet count of 24 today. Timeline and lab review does not appear consistent with HIT. 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 He is saturating his tunneled catheter dressing which has needed changed about 4 times since dialysis today-administer 1 pack platelets now Transfuse to keep platelets >10 or transfuse for any s/s bleeding to keep >50 Prefer platelet count to be >20 prior to discharge. Check fibrinogen, coags, blood smear Please refer to Dr. Alvarez's attestation below for additional details. - Data of Consult Patient: new to practice Consult date: 07/21/17 Requesting Physician: Ruthann Redmond CNP Primary Care Provider: Tere Castellanos, - Consult Narrative Reason for consult: Thrombocytopenia, WALLACE/Cirrhosis History of present illness: Mr. Love is a 86 year old male with past medical history significant for diabetes type 2, hypertension, right kidney disease following with Dr. Stephen Negron, Wallace cirrhosis who presents with decompensated cirrhosis with ascites accumulation. History of WALLACE cirrhosis- Abdominal US from 11/2016 reveals hepatic cirrhosis, splenomegaly, ascites. He denies any abdominal pain, fevers, chills, night sweats weight loss or appetite changes. He denies any history of bleeding such as hematochezia, hematemesis or melena. He is a well known patient of Dr. Negron with nephrology, CKD stage IV. He presented with MORRO superimposed on CKD. He has started inpatient HD, completed 2 days. Past Med Surg Social Fam HX - Past Medical History Medical history: non-contributory, cirrhosis, diabetes, GERD, hyperlipidemia, hypertension, renal disease, other Psychiatric history: no psych history - Past Surgical History Surgical History: non-contributory Additional surgical history: LEFT KNEE SURG - Social History Smoking Status: Never smoker Smokeless Tobacco Status: No Alcohol use: none Drug use: none - Family History Mother Adopted: No Family Member Ethnicity: Non- Living Status: Hx Family Cardiac Disorders: No Hx Family Respiratory Disorders: No Hx Family Cancer: No Hx Family GI Disorders: No Hx Family Endocrine Disorder: No Hx Family Neuromuscular Disorders: No Hx Family Neurologic Disorders: No Hx Family HEENT Disorders: No Hx Family Autoimmune Disorders: No Medications and Allergies Ascorbic Acid [Vitamin C] 1,000 mg PO BID 06/04/15 [History] Cholecalciferol (Vitamin D3) [Vitamin D3] 1,000 unit PO DAILY 06/04/15 [History] Esomeprazole Magnesium [Nexium] 40 mg PO DAILY PRN 06/04/15 [History] Carvedilol [Coreg] 6.25 mg PO DAILY 05/05/17 [History] Fenofibrate Nanocrystallized [Tricor] 145 mg PO DAILY 05/05/17 [History] Furosemide [Lasix] 40 mg PO DAILY 05/05/17 [History] amLODIPine [Norvasc] 5 mg PO BID #30 tablet 05/08/17 [Rx] Repaglinide [Prandin] 2 mg PO DAILY 07/12/17 [History] 3 Allergy/AdvReac Type Severity Reaction Status Date / Time Sulfa (Sulfonamide AdvReac See Verified 05/05/17 16:49 Antibiotics) Comments Constitutional: Present: fatigue, weakness. Absent: anorexia, chills, fever(s) , frequent falls, night sweats, weight loss Eyes: Absent: change in vision Nose, mouth and throat: Absent: dysphagia, epistaxis Cardiovascular: Absent: chest pain Respiratory: Absent: cough, dyspnea, hemoptysis Gastrointestinal: Absent: abdominal pain, change in bowel habits, hematemesis, hematochezia, melena, nausea, vomiting Additional comments: Denies dysuria or hematuria Musculoskeletal: Present: muscle weakness Integumentary: Absent: rash, wounds Additional comments: ecchymosis Neurological: Absent: focal weakness, frequent falls Hematologic/Lymphatic: Present: as per HPI Oncology - Exam - Constitutional Vitals: Temp Pulse Resp BP Pulse Ox 98.0 F 102 18 106/62 98 07/21/17 15:38 07/21/17 15:38 07/21/17 15:38 07/21/17 15:38 07/21/17 15:38 General appearance: cooperative, no acute distress, no febrile - Head Head exam: Present: atraumatic - ENT ENT exam: Present: mucous membranes moist - Respiratory Respiratory exam: Present: CTAB. Absent: respiratory distress - Cardiovascular Cardiovascular exam: Present: RRR, +S1, +S2 - GI/Abdominal GI/Abdominal exam: Present: normal bowel sounds, soft. Absent: guarding, rebound, tenderness - Extremities Exam Extremities exam: Absent: calf tenderness Additional comments: chronic BLE skin changes/discoloration noted, secondary to venous stasis - Neurological Exam Neurological exam: Present: alert, oriented X3, no focal deficits, strengths equal and symetr throughout - Psychiatric Psychiatric exam: Present: normal affect, normal mood - Skin Skin exam: Present: dry, intact, normal color, warm Additional comments: During first assessment nurse changing dressing to tunneled cath which was saturated in blood, pressure dressing placed. During assessment approx one hour later with Dr. Alvarez, dressing D&I with no bleeding noted Consult Discharge Plan - Plan Referrals: Tere Castellanos CNP [Primary Care Provider] - 07/20/17 10:00 am <Sachin Alvarez - Last Filed: 07/21/17 20:29> Date of Encounter: 07/21/17 - Data of Consult Requesting Physician: Ruthann Redmond CNP Primary Care Provider: Tere Castellanos, - Consult Narrative History of present illness: Mr. Love is a 86 year old male Oncology - Exam - Constitutional Vitals: Temp Pulse Resp BP Pulse Ox 99.4 F 90 97 115/68 98 07/21/17 18:26 07/21/17 18:26 07/21/17 18:26 07/21/17 18:26 07/21/17 15:38 Oncology - Results Labs: 3 07/21/17 07/21/17 07/21/17 19:50 11:25 07:31 WBC RBC Hgb Hct MCV MCH MCHC RDW Plt Count MPV Immature Gran % Seg Neutrophils % Lymphocytes % Monocytes % Eosinophils % Basophils % Neutrophils # Lymphocytes # Monocytes # Eosinophils # Basophils # Nucleated RBCs/100 WBC Immature Plt Fraction PT 16.2 H INR 1.5 APTT 36.2 H Sodium Potassium Chloride Carbon Dioxide BUN Creatinine Est GFR ( Amer) Est GFR (Non-Af Amer) BUN/Creatinine Ratio Glucose POC Glucose 147 H 104 H Calculated Osmolality Calcium Ur Eosinophil Smear Urine Creatinine Urine Sodium Hep Bs Antigen Hep Bs Antibody 3 07/21/17 07/21/17 07/20/17 04:35 04:35 18:52 WBC 4.4 RBC 3.23 L Hgb 9.0 L Hct 27.3 L MCV 84.5 MCH 27.9 L MCHC 33.0 RDW 14.9 H Plt Count 24 L* MPV Immature Gran % 0.7 Seg Neutrophils % 70.6 Lymphocytes % 14.9 Monocytes % 12.7 Eosinophils % 0.9 Basophils % 0.2 Neutrophils # 3.1 Lymphocytes # 0.7 Monocytes # 0.6 Eosinophils # 0.0 Basophils # 0.0 Nucleated RBCs/100 WBC Immature Plt Fraction 4.3 PT INR APTT Sodium 136 Potassium 3.7 Chloride 104 Carbon Dioxide 23 BUN 39 H Creatinine 3.42 H Est GFR ( Amer) 21 L Est GFR (Non-Af Amer) 17 L BUN/Creatinine Ratio 11 Glucose 106 H POC Glucose 224 H Calculated Osmolality 292 Calcium 7.7 L Ur Eosinophil Smear Urine Creatinine Urine Sodium Hep Bs Antigen Hep Bs Antibody 3 07/20/17 07/20/17 07/20/17 17:15 16:57 11:24 WBC RBC Hgb Hct MCV MCH MCHC RDW Plt Count MPV Immature Gran % Seg Neutrophils % Lymphocytes % Monocytes % Eosinophils % Basophils % Neutrophils # Lymphocytes # Monocytes # Eosinophils # Basophils # Nucleated RBCs/100 WBC Immature Plt Fraction PT INR APTT Sodium Potassium Chloride Carbon Dioxide BUN Creatinine Est GFR ( Amer) Est GFR (Non-Af Amer) BUN/Creatinine Ratio Glucose POC Glucose 135 H 117 H 94 Calculated Osmolality Calcium Ur Eosinophil Smear Urine Creatinine Urine Sodium Hep Bs Antigen Hep Bs Antibody 3 07/20/17 07/20/17 07/20/17 08:23 06:07 06:07 WBC 5.6 RBC 3.41 L Hgb 9.6 L Hct 28.8 L MCV 84.5 MCH 28.2 MCHC 33.3 RDW 15.1 H Plt Count 36 L MPV TNP Immature Gran % 1.1 Seg Neutrophils % 74.9 Lymphocytes % 11.5 Monocytes % 11.2 Eosinophils % 0.9 Basophils % 0.4 Neutrophils # 4.2 Lymphocytes # 0.6 Monocytes # 0.6 Eosinophils # 0.1 Basophils # 0.0 Nucleated RBCs/100 WBC Immature Plt Fraction 3.5 PT INR APTT Sodium 138 Potassium 4.1 Chloride 106 Carbon Dioxide 20 L BUN 67 H Creatinine 5.02 H Est GFR ( Amer) 13 L Est GFR (Non-Af Amer) 11 L BUN/Creatinine Ratio 13 Glucose 79 POC Glucose 94 Calculated Osmolality 304 H Calcium 7.8 L Ur Eosinophil Smear Urine Creatinine Urine Sodium Hep Bs Antigen Hep Bs Antibody 3 07/19/17 07/19/17 07/19/17 21:14 16:35 12:17 WBC RBC Hgb Hct MCV MCH MCHC RDW Plt Count MPV Immature Gran % Seg Neutrophils % Lymphocytes % Monocytes % Eosinophils % Basophils % Neutrophils # Lymphocytes # Monocytes # Eosinophils # Basophils # Nucleated RBCs/100 WBC Immature Plt Fraction PT INR APTT Sodium Potassium Chloride Carbon Dioxide BUN Creatinine Est GFR ( Amer) Est GFR (Non-Af Amer) BUN/Creatinine Ratio Glucose POC Glucose 194 H 103 H 87 Calculated Osmolality Calcium Ur Eosinophil Smear Urine Creatinine Urine Sodium Hep Bs Antigen Hep Bs Antibody 3 07/19/17 07/19/17 07/19/17 10:49 06:56 05:39 WBC RBC Hgb Hct MCV MCH MCHC RDW Plt Count MPV Immature Gran % Seg Neutrophils % Lymphocytes % Monocytes % Eosinophils % Basophils % Neutrophils # Lymphocytes # Monocytes # Eosinophils # Basophils # Nucleated RBCs/100 WBC Immature Plt Fraction PT INR APTT Sodium 135 L Potassium 4.1 Chloride 105 Carbon Dioxide 15 L BUN 105 H Creatinine 6.42 H Est GFR ( Amer) 10 L Est GFR (Non-Af Amer) 8 L BUN/Creatinine Ratio 16 Glucose 81 POC Glucose 91 91 Calculated Osmolality 312 H Calcium 7.8 L Ur Eosinophil Smear Urine Creatinine Urine Sodium Hep Bs Antigen Hep Bs Antibody 3 07/19/17 07/18/17 07/18/17 05:39 22:24 20:38 WBC 5.3 RBC 3.23 L Hgb 9.2 L Hct 27.0 L MCV 83.6 MCH 28.5 MCHC 34.1 RDW 14.9 H Plt Count 63 L MPV 11.7 Immature Gran % 1.9 Seg Neutrophils % 77.7 Lymphocytes % 9.8 Monocytes % 9.6 Eosinophils % 0.8 Basophils % 0.2 Neutrophils # 4.1 Lymphocytes # 0.5 L Monocytes # 0.5 Eosinophils # 0.0 Basophils # 0.0 Nucleated RBCs/100 WBC 0.4 H Immature Plt Fraction 2.0 PT INR APTT Sodium Potassium Chloride Carbon Dioxide BUN Creatinine Est GFR ( Amer) Est GFR (Non-Af Amer) BUN/Creatinine Ratio Glucose POC Glucose 119 H 80 Calculated Osmolality Calcium Ur Eosinophil Smear Urine Creatinine Urine Sodium Hep Bs Antigen Hep Bs Antibody 3 07/18/17 07/18/17 07/18/17 15:21 11:11 08:13 WBC RBC Hgb Hct MCV MCH MCHC RDW Plt Count MPV Immature Gran % Seg Neutrophils % Lymphocytes % Monocytes % Eosinophils % Basophils % Neutrophils # Lymphocytes # Monocytes # Eosinophils # Basophils # Nucleated RBCs/100 WBC Immature Plt Fraction PT INR APTT Sodium Potassium Chloride Carbon Dioxide BUN Creatinine Est GFR ( Amer) Est GFR (Non-Af Amer) BUN/Creatinine Ratio Glucose POC Glucose 208 H 127 H Calculated Osmolality Calcium Ur Eosinophil Smear Urine Creatinine Urine Sodium Hep Bs Antigen Nonreactive Hep Bs Antibody 0.06 3 07/18/17 07/18/17 07/18/17 07:25 04:58 04:58 WBC 4.1 L RBC 3.20 L Hgb 9.3 L Hct 26.9 L MCV 84.1 MCH 29.1 MCHC 34.6 RDW 14.9 H Plt Count 62 L MPV 11.1 Immature Gran % 0.7 Seg Neutrophils % 75.5 Lymphocytes % 13.4 Monocytes % 9.5 Eosinophils % 0.7 Basophils % 0.2 Neutrophils # 3.1 Lymphocytes # 0.6 Monocytes # 0.4 Eosinophils # 0.0 Basophils # 0.0 Nucleated RBCs/100 WBC Immature Plt Fraction 2.0 PT INR APTT Sodium 134 L Potassium 4.2 Chloride 104 Carbon Dioxide 16 L BUN 98 H Creatinine 6.54 H Est GFR ( Amer) 10 L Est GFR (Non-Af Amer) 8 L BUN/Creatinine Ratio 15 Glucose 85 POC Glucose 100 H Calculated Osmolality 308 H Calcium 8.1 L Ur Eosinophil Smear Urine Creatinine Urine Sodium Hep Bs Antigen Hep Bs Antibody 3 07/17/17 07/17/17 07/17/17 19:54 16:35 11:27 WBC RBC Hgb Hct MCV MCH MCHC RDW Plt Count MPV Immature Gran % Seg Neutrophils % Lymphocytes % Monocytes % Eosinophils % Basophils % Neutrophils # Lymphocytes # Monocytes # Eosinophils # Basophils # Nucleated RBCs/100 WBC Immature Plt Fraction PT INR APTT Sodium Potassium Chloride Carbon Dioxide BUN Creatinine Est GFR ( Amer) Est GFR (Non-Af Amer) BUN/Creatinine Ratio Glucose POC Glucose 156 H 104 H 135 H Calculated Osmolality Calcium Ur Eosinophil Smear Urine Creatinine Urine Sodium Hep Bs Antigen Hep Bs Antibody 3 07/17/17 07/17/17 07/17/17 07:43 07:43 07:30 WBC 5.5 RBC 3.68 L Hgb 10.1 L Hct 30.6 L MCV 83.2 MCH 27.4 L MCHC 33.0 RDW 14.9 H Plt Count 77 L MPV 11.0 Immature Gran % Seg Neutrophils % Lymphocytes % Monocytes % Eosinophils % Basophils % Neutrophils # Lymphocytes # Monocytes # Eosinophils # Basophils # Nucleated RBCs/100 WBC Immature Plt Fraction PT INR APTT Sodium 133 L Potassium 4.0 Chloride 103 Carbon Dioxide 17 L BUN 95 H Creatinine 6.03 H Est GFR ( Amer) 11 L Est GFR (Non-Af Amer) 9 L BUN/Creatinine Ratio 16 Glucose 114 H POC Glucose 116 H Calculated Osmolality 306 H Calcium 8.0 L Ur Eosinophil Smear Urine Creatinine Urine Sodium Hep Bs Antigen Hep Bs Antibody 3 07/16/17 07/16/17 07/16/17 21:00 16:37 11:59 WBC RBC Hgb Hct MCV MCH MCHC RDW Plt Count MPV Immature Gran % Seg Neutrophils % Lymphocytes % Monocytes % Eosinophils % Basophils % Neutrophils # Lymphocytes # Monocytes # Eosinophils # Basophils # Nucleated RBCs/100 WBC Immature Plt Fraction PT INR APTT Sodium Potassium Chloride Carbon Dioxide BUN Creatinine Est GFR ( Amer) Est GFR (Non-Af Amer) BUN/Creatinine Ratio Glucose POC Glucose 183 H 74 124 H Calculated Osmolality Calcium Ur Eosinophil Smear Urine Creatinine Urine Sodium Hep Bs Antigen Hep Bs Antibody 3 07/16/17 07/16/17 07/16/17 07:59 07:56 07:45 WBC RBC Hgb Hct MCV MCH MCHC RDW Plt Count MPV Immature Gran % Seg Neutrophils % Lymphocytes % Monocytes % Eosinophils % Basophils % Neutrophils # Lymphocytes # Monocytes # Eosinophils # Basophils # Nucleated RBCs/100 WBC Immature Plt Fraction PT INR APTT Sodium Potassium Chloride Carbon Dioxide BUN Creatinine Est GFR ( Amer) Est GFR (Non-Af Amer) BUN/Creatinine Ratio Glucose POC Glucose 94 Calculated Osmolality Calcium Ur Eosinophil Smear 0 Urine Creatinine 76 Urine Sodium 19.5 Hep Bs Antigen Hep Bs Antibody 3 07/16/17 07/16/17 07/15/17 04:26 04:26 20:30 WBC 5.3 RBC 3.34 L Hgb 9.6 L Hct 28.2 L MCV 84.4 MCH 28.7 MCHC 34.0 RDW 14.8 H Plt Count 69 L MPV 11.8 Immature Gran % 1.3 Seg Neutrophils % 79.2 Lymphocytes % 10.1 Monocytes % 8.2 Eosinophils % 1.0 Basophils % 0.2 Neutrophils # 4.2 Lymphocytes # 0.5 L Monocytes # 0.4 Eosinophils # 0.1 Basophils # 0.0 Nucleated RBCs/100 WBC 0.4 H Immature Plt Fraction 2.4 PT INR APTT Sodium 134 L Potassium 3.7 Chloride 104 Carbon Dioxide 17 L BUN 89 H Creatinine 6.07 H Est GFR ( Amer) 11 L Est GFR (Non-Af Amer) 9 L BUN/Creatinine Ratio 15 Glucose 86 POC Glucose 135 H Calculated Osmolality 305 H Calcium 7.8 L Ur Eosinophil Smear Urine Creatinine Urine Sodium Hep Bs Antigen Hep Bs Antibody 3 07/15/17 07/15/17 07/15/17 15:54 11:20 07:40 WBC RBC Hgb Hct MCV MCH MCHC RDW Plt Count MPV Immature Gran % Seg Neutrophils % Lymphocytes % Monocytes % Eosinophils % Basophils % Neutrophils # Lymphocytes # Monocytes # Eosinophils # Basophils # Nucleated RBCs/100 WBC Immature Plt Fraction PT INR APTT Sodium Potassium Chloride Carbon Dioxide BUN Creatinine Est GFR ( Amer) Est GFR (Non-Af Amer) BUN/Creatinine Ratio Glucose POC Glucose 124 H 107 H 98 Calculated Osmolality Calcium Ur Eosinophil Smear Urine Creatinine Urine Sodium Hep Bs Antigen Hep Bs Antibody 3 07/15/17 07/15/17 07/15/17 06:21 00:30 00:30 WBC 3.9 L RBC 3.04 L Hgb 9.5 L 8.9 L Hct 27.8 L 26.4 L MCV 86.8 MCH 29.3 MCHC 33.7 RDW 14.9 H Plt Count 54 L MPV 11.1 Immature Gran % 0.8 Seg Neutrophils % 77.4 Lymphocytes % 11.4 Monocytes % 9.1 Eosinophils % 0.8 Basophils % 0.5 Neutrophils # 3.0 Lymphocytes # 0.4 L Monocytes # 0.4 Eosinophils # 0.0 Basophils # 0.0 Nucleated RBCs/100 WBC 0.5 H Immature Plt Fraction 1.7 PT INR APTT Sodium 134 L Potassium 3.7 Chloride 104 Carbon Dioxide 19 L BUN 87 H Creatinine 5.95 H Est GFR ( Amer) 11 L Est GFR (Non-Af Amer) 9 L BUN/Creatinine Ratio 15 Glucose 69 L POC Glucose Calculated Osmolality 303 H Calcium 7.6 L Ur Eosinophil Smear Urine Creatinine Urine Sodium Hep Bs Antigen Hep Bs Antibody 3 07/14/17 20:22 WBC RBC Hgb Hct MCV MCH MCHC RDW Plt Count MPV Immature Gran % Seg Neutrophils % Lymphocytes % Monocytes % Eosinophils % Basophils % Neutrophils # Lymphocytes # Monocytes # Eosinophils # Basophils # Nucleated RBCs/100 WBC Immature Plt Fraction PT INR APTT Sodium Potassium Chloride Carbon Dioxide BUN Creatinine Est GFR ( Amer) Est GFR (Non-Af Amer) BUN/Creatinine Ratio Glucose POC Glucose 122 H Calculated Osmolality Calcium Ur Eosinophil Smear Urine Creatinine Urine Sodium Hep Bs Antigen Hep Bs Antibody - Attending Attestation I have seen and examined Mr. Love and agree with the assessment and plan by Ms. Lou. Mr. Yoder's robust-appearing 86-year-old gentleman who has cirrhosis secondary to nonalcoholic steatohepatitis. In addition, he has developed end-stage renal disease and has been placed on dialysis. This has acute on chronic thrombocytopenia secondary to cirrhosis. It is my assessment is acute thrombocytopenia secondary to hepatic decompensation and fluid overload causing worsening splenic sequestration. With dialysis, I expect this to improve. Clinically, this is not consistent with HIT as he received 1 dose of heparin yesterday per pharmacy. I think it is reasonable he continue with heparin with dialysis as necessary. He will receive 1 unit of platelets tonight as he has bruising around his catheter. From our perspective, he may be discharged as per the primary team. I will follow-up with his platelets tomorrow.
[2017-07-21 20:21] LABS: INR 1.5; Prothrombin Time 16.2 Seconds (9.4-12.1)
[2017-07-21 20:24] LABS: Activated Partial Thrombo Time 36.2 Seconds (26.0-36.0)
[2017-07-21 20:27] LABS: % Iron Saturation 32 % (20-55); Iron 70 mcg/dL (65-175); Lactate Dehydrogenase 218 Units/L (140-271); Transferrin 157 mg/dL (203-362)
[2017-07-21 20:46] LABS: Ferritin 158 ng/mL (20-250)
[2017-07-21 20:51] LABS: Folate 8.8 ng/mL (3.0-16.0)
[2017-07-21] MEDS ORDERED: 0.9 % Sodium Chloride 250 ML ONE (22:14)
[2017-07-22 06:11] LABS: Basophils % 0.2 %; Hemoglobin 8.6 g/dL (12.9-16.9)
[2017-07-22 06:13] LABS: Eosinophils % 0.6 %; Hematocrit 26.7 % (37.5-50.1); Immature Granulocytes % 1.7 % (0-4); Immature Platelets 3.5 % (1.1-6.1); Lymphocytes # 0.7 K/mcL (0.6-4.6); Lymphocytes % 13.9 %; Mean Corpuscular HGB Conc 32.2 g/dL (31.6-35.5); Mean Corpuscular Hemoglobin 27.6 pg (28.0-33.3); Mean Corpuscular Volume 85.6 fL (83.0-100.0); Mean Platelet Volume 10.6 fL (9.4-12.4); Monocytes # 0.7 K/mcL (0.0-1.3); Monocytes % 13.5 %; Red Blood Count 3.12 M/mcL (4.19-5.50); Red Cell Distribution Width 14.8 % (11.5-14.5); Segmented Neutrophils % 70.1 %
[2017-07-22 06:14] LABS: Neutrophils # 3.4 K/mcL (1.6-8.9); Platelet Count 33 K/mcL (140-400)
[2017-07-22 06:33] LABS: Calcium 7.8 mg/dL (8.6-10.3); Potassium 3.6 mEq/L (3.5-5.1)
[2017-07-22] MEDS: Insulin LISPRO 300 UNITS/3 ML VIAL SQ SCH ×2 (07:52→11:45)
[2017-07-22] MEDS: *HR* Repaglinide 1 MG TABLET PO SCH (08:09)
[2017-07-22] MEDS: Ascorbic Acid 500 MG TABLET PO SCH (08:09)
[2017-07-22] MEDS: amLODIPine 5 MG TABLET PO SCH (08:09)
[2017-07-22 11:29] VITALS: BP 117/64
--- NOTE | 2017-07-22 11:35 | Internal Med Progress Note ---
Date of Encounter: 07/22/17 Time of Encounter: 11:30 - Assessment and plan (1) Thrombocytopenia Current Visit: Yes Status: Acute Assessment and plan: Possibly from liver disease. Prophylactic heparin has been discontinued. Hematology think this likley due to chronic liver disease. Continue to monitor platelets. Platelet count was 33 today after receiving one bag of platelets overnight. Continue discharge planing to ECF (2) Renal failure (ARF), acute on chronic Current Visit: Yes Status: Acute Assessment and plan: On hemodialysis. Has received 3 sessions. renal following. Qualifiers: Acute renal failure type: unspecified Chronic kidney disease stage: stage 5 , not on chronic dialysis Qualified Code(s): N17.9 - Acute kidney failure, unspecified; N18.5 - Chronic kidney disease, stage 5 (3) HTN (hypertension) Current Visit: Yes Status: Chronic Assessment and plan: Stable. Continue home medications. Qualifiers: Hypertension type: unspecified Qualified Code(s): I10 - Essential (primary ) hypertension (4) CKD (chronic kidney disease) Current Visit: Yes Status: Chronic Assessment and plan: Renal function improving with D2 dialysis. GFR is 11, serum creatinine 5.02. Nephrology is following. I appreciate their assistance and recommendations. Dialysis #2 today, we will plan for third day tomorrow and work on discharge. Repeat labs in the a.m. Continue to monitor. Qualifiers: Chronic kidney disease stage: stage 5, not on chronic dialysis Qualified Code(s): N18.5 - Chronic kidney disease, stage 5 (5) Cirrhosis of liver with ascites Current Visit: Yes Status: Acute Assessment and plan: TRIVEDI. Pt with pancytopenia, secondary to TRIVEDI. s/p paracentesis x 2 with 8L drained. Continue to monitor Qualifiers: Hepatic cirrhosis type: unspecified hepatic cirrhosis Qualified Code(s): K74.60 - Unspecified cirrhosis of liver; R18.8 - Other ascites (6) DMII (diabetes mellitus, type 2) Current Visit: Yes Status: Acute Assessment and plan: Chronic. Continue SSI, accuchecks achs, diabetic/renal diet. Qualifiers: Diabetes mellitus assisted insulin use: without long term care pharmacist use Diabetes mellitus complication status: without complication Qualified Code(s): E11.9 - Type 2 diabetes mellitus without complications (7) Decompensated hepatic cirrhosis Current Visit: Yes Status: Acute Assessment and plan: Plan as above. (8) Anemia Current Visit: Yes Status: Acute Assessment and plan: Anemia, most likely anemia of chronic disease. Hemoglobin is remaining stable around 9.6. No obvious signs of bleeding, patient remains hemodynamically stable Continue to monitor Type and screen completed. Preparing to transfuse if hemoglobin less than 8. Qualifiers: Anemia type: unspecified type Qualified Code(s): D64.9 - Anemia, unspecified (9) DVT prophylaxis Current Visit: Yes Status: Acute Assessment and plan: SCDs - Time Spent With Patient Total time spent is greater than 50% in coordination of care (as documented) at patient's floor/unit and/or counseling patient: - Subjective Interval history: No acute events overnight - Constitutional Vitals: Temp Pulse Resp BP Pulse Ox 98.0 F 90 18 117/64 98 07/22/17 11:27 07/22/17 11:27 07/22/17 11:27 07/22/17 11:27 07/22/17 11:27 General appearance: Present: cooperative, A&O X 3, pleasant, no acute distress, answers questions appropriately - Head Head exam: Present: atraumatic, normocephalic - Eye Eye exam: Present: PERRL, conjuntiva pink, sclera anicteric Pupils: Present: PERRL - Neck Neck exam general surgery: Present: supple, trachea midline. Absent: lymphadenopathy - Respiratory Respiratory exam: Present: CTAB. Absent: accessory muscle use, rales, rhonchi, wheezes - Cardiovascular Cardiovascular exam: Present: RRR, +S1, +S2. Absent: diastolic murmur, gallop, rubs, systolic murmur - GI/Abdominal GI/Abdominal exam: Present: normal bowel sounds, soft, no peritoneal signs. Absent: distended, tenderness - Extremities Exam Extremities exam: Present: warm, radial pulses palpable and symmetrical. Absent : calf tenderness, cyanotic, pedal edema - Neurological Exam Neurological exam: Present: CN II-XII intact, oriented X3, no focal deficits. Absent: pronater drift, facial droop, speech deficit - Skin Skin exam: Present: dry, intact Internal Medicine: Result - Labs CBC & Chem 7: 07/22/17 05:40 07/22/17 05:40 Labs: Short CBC 07/22/17 Range/Units 05:40 WBC 4.8 (4.3-11.1) K/mcL Hgb 8.6 L (12.9-16.9) g/dL Hct 26.7 L (37.5-50.1) % Plt Count 33 L (140-400) K/mcL Neutrophils # 3.4 (1.6-8.9) K/mcL BMP 07/22/17 05:40 Sodium 137 Potassium 3.6 Chloride 104 Carbon Dioxide 25 BUN 33 H Creatinine 2.92 H Glucose 90 Calcium 7.8 L - ABG Interpretation ABG results: PT/INR, D-dimer PT 16.2 Seconds (9.4-12.1) H 07/21/17 19:50 Consult Discharge Plan - Plan Referrals: Tere Castellanos CNP [Primary Care Provider] - 07/20/17 10:00 am
--- NOTE | 2017-07-22 12:04 | Discharge Summary ---
Orders not resulted at time of discharge: Pending orders 07/23/17 04:00 Basic Metabolic Panel AM 0400 CBC [Complete Blood Count] [HEME] AM 0400 07/24/17 04:00 Basic Metabolic Panel AM 0400 CBC [Complete Blood Count] [HEME] AM 0400 07/25/17 04:00 Basic Metabolic Panel AM 0400 CBC [Complete Blood Count] [HEME] AM 0400 07/26/17 04:00 Basic Metabolic Panel AM 0400 CBC [Complete Blood Count] [HEME] AM 0400 07/27/17 04:00 Basic Metabolic Panel AM 0400 CBC [Complete Blood Count] [HEME] AM 0400 Date of Encounter: 07/22/17 Time of Encounter: 12:00 - Discharge Diagnosis (1) Renal failure (ARF), acute on chronic Priority: Primary Status: Acute Assessment and Plan: 86 year old male with history of diabetes type 2, hypertension, right kidney disease following with Dr. Stephen Negron, Wallace cirrhosis who presents with decompensated cirrhosis with ascites accumulation. He presented with one-week history of worsening abdominal swelling with distention and pressure sensation and decreased appetite due to large volume ascites accumulation. He has no prior history of paracentesis and this appeared to be his first episode of severe symptomatic ascites. He was assessed with acute decompensated liver cirrhosis and IR was consulted for paracentesis. He had paracentesis done with drainage of 8L of fluid. He had paracentesis twice with resolution of his decompensated cirrhosis He was noted to have a worsening of his kidney function, he had existing chronic kidney disease. He was started on dialysis on 07/19/17 after there was no improvement in hs kidney function. A permacath was placed and he will need dialysis going forward which has been set up. He was also noted to be thrombocytopenic and hematology was consulted. his thrombocytopenia was deemed likely 2/2 to his chronic liver disease. He was transfused one bag of platelets which he tolerated well. He was subsequently discharged to [facility] in a stable condition. 35 mins was spent in discharging this patient Qualifiers: Acute renal failure type: unspecified Chronic kidney disease stage: stage 5 , not on chronic dialysis Qualified Code(s): N17.9 - Acute kidney failure, unspecified; N18.5 - Chronic kidney disease, stage 5 (2) Thrombocytopenia Priority: Secondary Status: Acute Assessment and Plan: Possibly from liver disease. Prophylactic heparin has been discontinued. Hematology think this likley due to chronic liver disease. Continue to monitor platelets. Transfuse if less than 20 or less than 50 with bleeding. Continue discharge planing to [facility]CF (3) HTN (hypertension) Priority: Secondary Status: Chronic Qualifiers: Hypertension type: unspecified Qualified Code(s): I10 - Essential (primary ) hypertension (4) CKD (chronic kidney disease) Priority: Secondary Status: Chronic Qualifiers: Chronic kidney disease stage: stage 5, not on chronic dialysis Qualified Code(s): N18.5 - Chronic kidney disease, stage 5 (5) Cirrhosis of liver with ascites Priority: Secondary Status: Acute Qualifiers: Hepatic cirrhosis type: unspecified hepatic cirrhosis Qualified Code(s): K74.60 - Unspecified cirrhosis of liver; R18.8 - Other ascites (6) DMII (diabetes mellitus, type 2) Priority: Secondary Status: Acute Qualifiers: Diabetes mellitus terminal gauger insulin use: without terminal gauger use Diabetes mellitus complication status: without complication Qualified Code(s): E11.9 - Type 2 diabetes mellitus without complications (7) Decompensated hepatic cirrhosis Priority: Secondary Status: Acute (8) Anemia Priority: Secondary Status: Acute Qualifiers: Anemia type: unspecified type Qualified Code(s): D64.9 - Anemia, unspecified (9) DVT prophylaxis Priority: Secondary Status: Acute Hospital course: Mr. Loev is a 86 year old male - Time Spent with Patient Total time spent providing and/or coordinating discharge services: - Discharge Medications Home Medications: Ascorbic Acid [Vitamin C] 1,000 mg PO BID 06/04/15 [History] Cholecalciferol (Vitamin D3) [Vitamin D3] 1,000 unit PO DAILY 06/04/15 [History] Esomeprazole Magnesium [Nexium] 40 mg PO DAILY PRN 06/04/15 [History] Carvedilol [Coreg] 6.25 mg PO DAILY 05/05/17 [History] Fenofibrate Nanocrystallized [Tricor] 145 mg PO DAILY 05/05/17 [History] Furosemide [Lasix] 40 mg PO DAILY 05/05/17 [History] amLODIPine [Norvasc] 5 mg PO BID #30 tablet 05/08/17 [Rx] Repaglinide [Prandin] 2 mg PO DAILY 07/12/17 [History] Allergies/Adverse Reactions: 3 Allergy/AdvReac Type Severity Reaction Status Date / Time Sulfa (Sulfonamide AdvReac See Verified 05/05/17 16:49 Antibiotics) Comments Date of admission: 07/12/17 21:56 Primary care physician: Tere Castellanos, Consults: 07/12/17 21:57 Consult to Interventional Radiology [CONS] Routine Consulting Provider: Radiology Interventional Cols Reason for Consult: therapeutic paracentesis Call Completed: No 07/13/17 14:59 Consult to Nephrology [CONS] Routine Consulting Provider: Kidney Carolyn/SARA/CURLY/TANESHA Reason for Consult: CKD, CR OF 5 Time Notified: 15:00 Call Completed: Yes 07/18/17 12:24 Consult to Interventional Radiology [CONS] Routine Consulting Provider: Radiology Interventional Cols Reason for Consult: Permacath or Temp HD line Time Notified: 12:25 Call Completed: Yes 07/18/17 12:30 Consult to Dialysis [CONS] ONCE 07/18/17 17:17 Consult to Occupational Therapy [CONS] Routine Comment: Evaluate, develop and implement POC Reason for Consult: Evaluation Does patient have active BEDREST order?: No Is patient medically & hemodynamically stable?: Yes Patient assessed for mobility or mobilized this visit?: Yes Consult to Physical Therapy [CONS] Routine Comment: Evaluate, develop and implement POC Reason for Consult: Evaluation Does patient have active BEDREST order?: No Is patient medically & hemodynamically stable?: Yes Patient assessed for mobility or mobilized this visit?: Yes 07/19/17 11:30 Consult to Dialysis [CONS] ONCE 07/20/17 07:45 Consult to Dialysis [CONS] ONCE 07/20/17 16:40 Consult to Executive Asst [CONS] Routine Reason for SW Consult: Pt will need to discuss discharge planning and if he goes home, will need transportation to and from dialysis. 07/21/17 07:30 Consult to Dialysis [CONS] ONCE 07/21/17 13:08 Consult to Oncology Hematology [CONS] Routine Consulting Provider: Ivana Lou Reason for Consult: Thrombocytopenia Call Completed: Yes 07/21/17 13:18 Consult to Palliative Care [CONS] Routine Comment: Consulting Provider: Palliative Care Carolyn Reason for Consult: goals of care Call Completed: Yes - Constitutional Vitals: Temp Pulse Resp BP Pulse Ox 98.0 F 90 18 117/64 98 07/22/17 11:27 06/09/18 11:27 07/22/17 11:27 07/22/17 11:27 07/22/17 11:27 General appearance: Present: cooperative, A&O X 3, pleasant, no acute distress, answers questions appropriately - Patient Status Disposition: Transfer SNF Condition: Good - Discharge Instructions Follow Up With: Tere Castellanos CNP [Primary Care Provider] - 07/20/17 10:00 am
--- NOTE | 2017-07-22 12:12 | Physician Discharge Referral ---
- Diagnosis (1) Thrombocytopenia Priority: Primary Status: Acute (2) Renal failure (ARF), acute on chronic Status: Acute (3) HTN (hypertension) Status: Chronic (4) CKD (chronic kidney disease) Status: Chronic (5) Cirrhosis of liver with ascites Status: Acute (6) DMII (diabetes mellitus, type 2) Status: Acute (7) Decompensated hepatic cirrhosis Status: Acute (8) Anemia Status: Acute (9) DVT prophylaxis Status: Acute - Transfer Medications Home Medications: Ascorbic Acid [Vitamin C] 1,000 mg PO BID 06/04/15 [History] Cholecalciferol (Vitamin D3) [Vitamin D3] 1,000 unit PO DAILY 06/04/15 [History] Esomeprazole Magnesium [Nexium] 40 mg PO DAILY PRN 06/04/15 [History] Carvedilol [Coreg] 6.25 mg PO DAILY 05/05/17 [History] Fenofibrate Nanocrystallized [Tricor] 145 mg PO DAILY 05/05/17 [History] Furosemide [Lasix] 40 mg PO DAILY 05/05/17 [History] amLODIPine [Norvasc] 5 mg PO BID #30 tablet 05/08/17 [Rx] Repaglinide [Prandin] 2 mg PO DAILY 07/12/17 [History] Allergies/Adverse Reactions: 3 Allergy/AdvReac Type Severity Reaction Status Date / Time Sulfa (Sulfonamide AdvReac See Verified 05/05/17 16:49 Antibiotics) Comments - Respiratory Orders Smoking Cessation: Smoking cessation has been advised. For more information, call the [place] [employer] Quit Line at 8-312-DERI-NOW. - Mobility Orders Ambulate - Rehabiliation Orders Rehab Potential: Good - Diet Orders Renal CERTIFICATION: I certify that the transfer of the above named patient to an Extended Care Facility is necessary for the continuing treatment of the diagnosis listed. The above information is true and accurate reflection of patient's current condition. Confidential - Redisclosure prohibited without a patient's written consent.
== END 2017-07-22 14:20 | DRG 433 ==
LOC: EMEROO 16:15 → 3BNU 16:15 → SUATTDRO 21:56 → 3BNU 22:56 → 2ANU 07-18 14:41
PROVIDERS: ADMIT Internal Medicine; ATTEND Registered Nurse
PROC: IRPERMA (2017-07-19 12:00)